=== PATIENT | female | born 1945 | race Caucasian/White ===

== ENCOUNTER → 2021-01-23 | Outpatient (CLI) | payer MEDICARE ==
--- NOTE | 2021-01-24 08:46 | EST ---
- Stress Test Note Stress Test Results/Findings: Exam Performed: stress echo exercise Exam Date: 01/23/21 Reason for Exam: ABN EKG Height: 5 ft 3 in Weight: 77.3 kg Protocol: STRESS ECHO Stage: 1 Duration of Exercise: 3:00 Resting Heart Rate: 87 Resting Blood Pressure: 111/70 Maximum Achieved Heart Rate: 135 Maximum Achieved Blood Pressure: 161/61 85% PMHR: 123 100% PMHR: 145 METS: 4.4 Technologist Comment: Stress Test Results/Findings: Patient underwent exercise stress echo with a Deshaun protocol treadmill stress test. Patient exercised into Stage 1 for a total of 3 minutes reaching a total of 4.4 METS. Patient's maximum heart rate was 135 which represented 93 % age- predicted maximum heart rate. Stress EKG portion: At baseline patient's EKG showed normal sinus rhythm, normal axis, right plantar alannah block with nonspecific ST depressions in V3 through the 4. At peak exercise, EKG showed mild accentuation of S2 depressions P3 through V4, rare PVCs which is nonspecific given baseline EKG abnormalities. Stress echo portion: 2-D echocardiogram was performed in the parasternal long, personal short, apical 2 and apical four-chamber views at rest, peak exercise and in recovery. At baseline, echocardiogram showed left ventricular ejection fraction 55% without wall motion abnormalities. With peak exercise, echocardiogram shows improvement in left ventricular ejection fraction, increase contractility, decrease in left ventricular dimension without wall motion abnormalities consistent with a normal response to exercise. Conclusions: 1. Normal echo response to exercise without evidence of inducible ischemia. 2. Nonspecific EKG response given baseline EKG abnormalities. 3. Poor exercise capacity. 4. Normal ejection fraction 55% MTDD
== END | disposition home or self-care (01) ==
LOC: RADNMMAIN 09:36
PROVIDERS: ATTEND Family Medicine
DX: R94.31 Abnormal electrocardiogram [ECG] [EKG] (principal)
CPT/HCPCS: 93351

== ENCOUNTER → 2021-02-06 | Outpatient (CLI) | payer MEDICARE | END | disposition home or self-care (01) | DX: M85.851 Other specified disorders of bone density and structure, right thigh (principal) ==

== ENCOUNTER 2021-08-27 16:10 | Emergency (ER) | payer MEDICARE ==
[2021-08-27] MEDS ORDERED: IBUPROFEN 600 MG TAB PO STA (16:18)
[2021-08-27] MEDS ORDERED: ACETAMINOPHEN TAB 500 MG TAB PO STA (16:18)
--- NOTE | 2021-08-27 16:22 | ED ---
General Adult HPI - General Stated complaint: Generalized weakness Time Seen by Provider: 08/27/21 16:10 Source: patient, RN notes reviewed, old records reviewed - History of Present Illness Initial comments: This is a 76-year-old female presents emergency Department who states she's had COVID vaccine and the posterior. Patient states her has had the same but he recently came down with Coban. Patient states starting yesterday she started feeling extremely weak and fatigued. Patient states she at one point stop and passed out for a couple months according to her but after that she was again just feeling fatigued. Patient states again she got up today and her weakness in worsened and she just didn't feel right so she thought she come to the emergency department. Patient denies any shortness of breath or difficulty breathing or palpitations. Patient denies any abdominal pain. Patient states she did have diarrhea yesterday but none so far today. Patient states she hasn't eaten anything yesterday or today and is not taking much fluid in either. Patient's took her temperature at home and states was over 101. - Related Data Home Medications Medication Instructions Recorded Confirmed Levothyroxine Sodium [Synthroid] 50 mcg PO DAILY 08/27/21 08/27/21 Simvastatin [Zocor] 20 mg PO HS 08/27/21 08/27/21 hydroCHLOROthiazide [Hydrodiuril] 25 mg PO DAILY 08/27/21 08/27/21 Previous Rx's Medication Instructions Recorded Nitrofurantoin Monohyd/M-Cryst 100 mg PO Q12HR #14 cap 08/27/21 [Macrobid] Allergies Allergy/AdvReac Type Severity Reaction Status Date / Time Penicillins AdvReac Rash/Hives Verified 08/27/21 17:35 Sulfa (Sulfonamide AdvReac Rash/Hives Verified 08/27/21 17:35 Antibiotics) Review of Systems ROS Statement: Those systems with pertinent positive or pertinent negative responses have been documented in the HPI. ROS Other: All systems not noted in ROS Statement are negative. General Exam - General Exam Comments Initial Comments: GENERAL: Patient is well-developed and well-nourished. Patient is nontoxic and well- hydrated and is in mild distress. ENT: Neck is soft and supple. No significant lymphadenopathy is noted. Oropharynx is clear. Moist mucous membranes. Neck has full range of motion without elic iting any pain. EYES: The sclera were anicteric and conjunctiva were pink and moist. Extraocular movements were intact and pupils were equal round and reactive to light. Eyelids were unremarkable. PULMONARY: Unlabored respirations. Good breath sounds bilaterally. No audible rales rhonchi or wheezing was noted. CARDIOVASCULAR: There is a regular rate and rhythm without any murmurs gallops or rubs. ABDOMEN: Soft and nontender with normal bowel sounds. SKIN: Skin is clear with no lesions or rashes and otherwise unremarkable. NEUROLOGIC: Patient is alert and oriented x3. Cranial nerves II through XII are grossly intact. Motor and sensory are also intact. Normal speech, volume and content. Symmetrical smile. MUSCULOSKELETAL: Normal extremities with adequate strength and full range of motion. LYMPHATICS: No significant lymphadenopathy is noted PSYCHIATRIC: Normal psychiatric evaluation. Course Vital Signs 08/27/21 16:23 Temperature 101.5 F H Pulse Rate 121 H Respiratory 16 Rate Blood Pressure 122/89 O2 Sat by Pulse 96 Oximetry Medical Decision Making - Medical Decision Making EKG shows sinus tachycardia at 105 bpm VT interval is 120 QRS is under 26 QT interval 372 QTC is 491. Patient's EKG shows a right bundle-branch block. Patient also has an occasional PAC Chest x-ray shows no acute abnormality. Patient urinary tract infection and give 2 g of Rocephin IV. I will back and reevaluated after the patient received fluids and Motrin and Tylenol and Rocephin. Patient stated she felt better and she was comfortable going home and follow-up as an outpatient. - Lab Data Result diagrams: 08/27/21 16:45 08/27/21 16:45 Lab Results 08/27/21 08/27/21 08/27/21 Range/Units 16:36 16:45 16:45 WBC 15.4 H (3.8-10.6) k/uL RBC 4.38 (3.80-5.40) m/uL Hgb 14.1 (11.4-16.0) gm/dL Hct 43.2 (34.0-46.0) % MCV 98.5 (80.0-100.0) fL MCH 32.1 (25.0-35.0) pg MCHC 32.6 (31.0-37.0) g/dL RDW 14.1 (11.5-15.5) % Plt Count 170 (150-450) k/uL MPV 7.9 Neutrophils % 96 % Lymphocytes % 1 % Monocytes % 1 % Eosinophils % 1 % Basophils % 0 % Neutrophils # 14.8 H (1.3-7.7) k/uL Lymphocytes # 0.2 L (1.0-4.8) k/uL Monocytes # 0.2 (0-1.0) k/uL Eosinophils # 0.1 (0-0.7) k/uL Basophils # 0.0 (0-0.2) k/uL PT (9.0-12.0) sec INR (<1.2) APTT (22.0-30.0) sec Sodium (137-145) mmol/L Potassium (3.5-5.1) mmol/L Chloride (98-107) mmol/L Carbon Dioxide (22-30) mmol/L Anion Gap mmol/L BUN (7-17) mg/dL Creatinine (0.52-1.04) mg/dL Est GFR (CKD-EPI)AfAm (>60 ml/min/1.73 sqM) Est GFR (CKD-EPI)NonAf (>60 ml/min/1.73 sqM) Glucose (74-99) mg/dL Plasma Lactic Acid Zeus (0.7-2.0) mmol/L Calcium (8.4-10.2) mg/dL Total Bilirubin (0.2-1.3) mg/dL AST (14-36) U/L ALT (4-34) U/L Alkaline Phosphatase (38-126) U/L Troponin I <0.012 (0.000-0.034) ng/mL Total Protein (6.3-8.2) g/dL Albumin (3.5-5.0) g/dL Urine Color Urine Appearance (Clear) Urine pH (5.0-8.0) Ur Specific [place] (1.001-1.035) Urine Protein (Negative) Urine Glucose (UA) (Negative) Urine Ketones (Negative) Urine Blood (Negative) Urine Nitrite (Negative) Urine Bilirubin (Negative) Urine Urobilinogen (<2.0) mg/dL Ur Leukocyte Esterase (Negative) Urine RBC (0-5) /hpf Urine WBC (0-5) /hpf Urine WBC Clumps (None) /hpf Ur Squamous Epith Cells (0-4) /hpf Urine Bacteria (None) /hpf Urine Mucus (None) /hpf Urine Yeast (Budding) (None) /hpf Coronavirus (PCR) Detected A (Not Detectd) 08/27/21 08/27/21 08/27/21 Range/Units 16:45 16:45 16:45 WBC (3.8-10.6) k/uL RBC (3.80-5.40) m/uL Hgb (11.4-16.0) gm/dL Hct (34.0-46.0) % MCV (80.0-100.0) fL MCH (25.0-35.0) pg MCHC (31.0-37.0) g/dL RDW (11.5-15.5) % Plt Count (150-450) k/uL MPV Neutrophils % % Lymphocytes % % Monocytes % % Eosinophils % % Basophils % % Neutrophils # (1.3-7.7) k/uL Lymphocytes # (1.0-4.8) k/uL Monocytes # (0-1.0) k/uL Eosinophils # (0-0.7) k/uL Basophils # (0-0.2) k/uL PT 10.0 (9.0-12.0) sec INR 0.9 (<1.2) APTT 23.2 (22.0-30.0) sec Sodium 132 L (137-145) mmol/L Potassium 3.6 (3.5-5.1) mmol/L Chloride 96 L (98-107) mmol/L Carbon Dioxide 27 (22-30) mmol/L Anion Gap 9 mmol/L BUN 38 H (7-17) mg/dL Creatinine 0.99 (0.52-1.04) mg/dL Est GFR (CKD-EPI)AfAm 64 (>60 ml/min/1.73 sqM) Est GFR (CKD-EPI)NonAf 56 (>60 ml/min/1.73 sqM) Glucose 126 H (74-99) mg/dL Plasma Lactic Acid Zeus 1.3 (0.7-2.0) mmol/L Calcium 8.5 (8.4-10.2) mg/dL Total Bilirubin 0.9 (0.2-1.3) mg/dL AST 158 H (14-36) U/L ALT 125 H (4-34) U/L Alkaline Phosphatase 163 H (38-126) U/L Troponin I (0.000-0.034) ng/mL Total Protein 6.2 L (6.3-8.2) g/dL Albumin 3.4 L (3.5-5.0) g/dL Urine Color Urine Appearance (Clear) Urine pH (5.0-8.0) Ur Specific [place] (1.001-1.035) Urine Protein (Negative) Urine Glucose (UA) (Negative) Urine Ketones (Negative) Urine Blood (Negative) Urine Nitrite (Negative) Urine Bilirubin (Negative) Urine Urobilinogen (<2.0) mg/dL Ur Leukocyte Esterase (Negative) Urine RBC (0-5) /hpf Urine WBC (0-5) /hpf Urine WBC Clumps (None) /hpf Ur Squamous Epith Cells (0-4) /hpf Urine Bacteria (None) /hpf Urine Mucus (None) /hpf Urine Yeast (Budding) (None) /hpf Coronavirus (PCR) (Not Detectd) 08/27/21 Range/Units 17:17 WBC (3.8-10.6) k/uL RBC (3.80-5.40) m/uL Hgb (11.4-16.0) gm/dL Hct (34.0-46.0) % MCV (80.0-100.0) fL MCH (25.0-35.0) pg MCHC (31.0-37.0) g/dL RDW (11.5-15.5) % Plt Count (150-450) k/uL MPV Neutrophils % % Lymphocytes % % Monocytes % % Eosinophils % % Basophils % % Neutrophils # (1.3-7.7) k/uL Lymphocytes # (1.0-4.8) k/uL Monocytes # (0-1.0) k/uL Eosinophils # (0-0.7) k/uL Basophils # (0-0.2) k/uL PT (9.0-12.0) sec INR (<1.2) APTT (22.0-30.0) sec Sodium (137-145) mmol/L Potassium (3.5-5.1) mmol/L Chloride (98-107) mmol/L Carbon Dioxide (22-30) mmol/L Anion Gap mmol/L BUN (7-17) mg/dL Creatinine (0.52-1.04) mg/dL Est GFR (CKD-EPI)AfAm (>60 ml/min/1.73 sqM) Est GFR (CKD-EPI)NonAf (>60 ml/min/1.73 sqM) Glucose (74-99) mg/dL Plasma Lactic Acid Zeus (0.7-2.0) mmol/L Calcium (8.4-10.2) mg/dL Total Bilirubin (0.2-1.3) mg/dL AST (14-36) U/L ALT (4-34) U/L Alkaline Phosphatase (38-126) U/L Troponin I (0.000-0.034) ng/mL Total Protein (6.3-8.2) g/dL Albumin (3.5-5.0) g/dL Urine Color Yellow Urine Appearance Cloudy H (Clear) Urine pH 6.0 (5.0-8.0) Ur Specific [place] 1.039 H (1.001-1.035) Urine Protein 2+ H (Negative) Urine Glucose (UA) Negative (Negative) Urine Ketones 1+ H (Negative) Urine Blood Small H (Negative) Urine Nitrite Positive H (Negative) Urine Bilirubin Negative (Negative) Urine Urobilinogen 2.0 (<2.0) mg/dL Ur Leukocyte Esterase Large H (Negative) Urine RBC 7 H (0-5) /hpf Urine WBC >182 H (0-5) /hpf Urine WBC Clumps Occasional H (None) /hpf Ur Squamous Epith Cells 1 (0-4) /hpf Urine Bacteria Many H (None) /hpf Urine Mucus Few H (None) /hpf Urine Yeast (Budding) Few H (None) /hpf Coronavirus (PCR) (Not Detectd) Disposition Clinical Impression: COVID, Urinary tract infection Disposition: HOME SELF-CARE Condition: Good Instructions (If sedation given, give patient instructions): Coronavirus Dise ase 2019 (COVID-19), Urinary Tract Infection in Women (ED) Prescriptions: Nitrofurantoin Monohyd/M-Cryst [Macrobid] 100 mg PO Q12HR #14 cap Is patient prescribed a controlled substance at d/c from ED?: No Referrals: Dotty Schuler DO [Primary Care Provider] - 1-2 days Time of Disposition: 18:37
[2021-08-27] MEDS: SODIUM CHLORIDE 0.9% 500 ML 500 ML IV SCH ×3 (16:30→17:30)
--- NOTE | 2021-08-27 16:36 | XR ---
EXAMINATION TYPE: XR chest 2V DATE OF EXAM: 08/27/2021 COMPARISON: NONE HISTORY: Fever and weakness. TECHNIQUE: Frontal and lateral views of the chest are obtained. FINDINGS: Elevation and eventration anterior aspect right hemidiaphragm. There is no suspicious foca l air space opacity, pleural effusion, or pneumothorax seen. The cardiac silhouette size is within n ormal limits with calcified plaque aortic knob. The osseous structures are intact. IMPRESSION: No acute pulmonary process.
[2021-08-27 16:56] LABS: Basophils % (A) 0 %; Eosinophils # (A) 0.1 k/uL (0-0.7); Eosinophils % (A) 1 %; HCT 43.2 % (34.0-46.0); HGB 14.1 gm/dL (11.4-16.0); Lymphocytes # (A) 0.2 k/uL (1.0-4.8); Lymphocytes % (A) 1 %; MCH 32.1 pg (25.0-35.0); MCHC 32.6 g/dL (31.0-37.0); MCV 98.5 fL (80.0-100.0); Mean Platelet Volume 7.9; Monocytes # (A) 0.2 k/uL (0-1.0); Monocytes % (A) 1 %; Neutrophils # (A) 14.8 k/uL (1.3-7.7); Neutrophils % (A) 96 %; Platelet Count 170 k/uL (150-450); RBC 4.38 m/uL (3.80-5.40); RDW 14.1 % (11.5-15.5); WBC 15.4 k/uL (3.8-10.6)
[2021-08-27 17:09] LABS: Albumin 3.4 g/dL (3.5-5.0); Calcium 8.5 mg/dL (8.4-10.2); INR 0.9 (<1.2); Partial Thromboplastin Time 23.2 sec (22.0-30.0); Total Bilirubin 0.9 mg/dL (0.2-1.3); Total Protein 6.2 g/dL (6.3-8.2)
[2021-08-27 17:19] LABS: Potassium 3.6 mmol/L (3.5-5.1)
[2021-08-27 17:34] LABS: Appearance,Urine Cloudy (Clear); Bacteria,Urine Many /hpf; Bilirubin,Urine Negative (Negative); Blood,Urine Small (Negative); Budding Yeast,Urine Few /hpf; Color,Urine Yellow; Glucose,Urine (UA) Negative (Negative); Ketones,Urine 1+ (Negative); Leukocyte Esterase,Urine Large (Negative); Mucus,Urine Few /hpf; Nitrite,Urine Positive (Negative); Protein,Urine 2+ (Negative); RBC,Urine 7 /hpf (0-5); Specific Gravity,Urine 1.039 (1.001-1.035); Squamous Epithelial Cell,Urine 1 /hpf (0-4); WBC,Urine >182 /hpf (0-5)
[2021-08-27] MEDS ORDERED: cefTRIAXone IN SWFI 1,000 MG/10 ML SYRINGE IVP STA (17:53)
[2021-08-27 18:49] VITALS: RESP 18; TEMP 99.2
[2021-08-27 19:06] VITALS: BP 131/77; PULSE 94
== END 2021-08-27 19:06 | disposition home or self-care (01) ==
LOC: EC 16:10
DX: U07.1 COVID-19 (principal); N39.0 Urinary tract infection, site not specified
CPT/HCPCS: 36415; 93005; 80053; 83605; 84484; 85025; 85610; 85730; 81001; 87040; 87086; 87635; 71046; 99285; 96374; J0696

== ENCOUNTER 2021-09-23 12:05 | Observation (INO) | payer MEDICARE ==
[2021-09-23] MEDS ORDERED: MORPHINE SULFATE 2 MG/ML SYRINGE IVP STA (12:44)
[2021-09-23] MEDS ORDERED: VANCOMYCIN IV PER PHARMACY 1 EACH MISC MISCELLANE PRN (12:45)
[2021-09-23] MEDS ORDERED: VANCOMYCIN 1,500 MG in SODIUM CHLORIDE 0.9% 250 ML IVPB STA (12:47)
[2021-09-23] MEDS ORDERED: NALOXONE 0.4 MG/ML 1 ML VIAL IV PRN (12:49)
[2021-09-23] MEDS ORDERED: ACETAMINOPHEN TAB 325 MG TAB PO PRN (12:49)
[2021-09-23] MEDS: SODIUM CHLORIDE 0.9% 1,000 ML IV SCH (12:59)
--- NOTE | 2021-09-23 13:05 | ED ---
General Adult HPI - General Chief complaint: Skin/Abscess/Foreign Body Stated complaint: drainage from incision Time Seen by Provider: 09/23/21 12:29 Source: patient, RN notes reviewed, old records reviewed Mode of arrival: ambulatory Limitations: no limitations - History of Present Illness Initial comments: Patient is a 76-year-old female who presents from her orthopedic surgeon's office, and comes to the emergency Department complaining of worsening drainage from a surgical wound. Patient previously had a left leg/hip abscess that was drained on September 11. She was sent home on IV antibiotics through PICC line. He'll follow up today with Dr. lynn who requested her come to the emergency department for further evaluation. Plan is to admit the patient the hospital for washout tomorrow in the OR. She denies any fever. Endorses pain over the site. States that along the lower aspect of the incision, she does have some purulent drainage. Has been getting worse for the last 3-4 days. She denies any chest pain, abdominal pain, nausea, vomiting. Denies any lower extremities numbness or weakness. His no other acute complaints at this time. Presents for admission. - Related Data Home Medications Medication Instructions Recorded Confirmed Levothyroxine Sodium [Synthroid] 50 mcg PO DAILY 08/27/21 09/23/21 Simvastatin [Zocor] 20 mg PO HS 08/27/21 09/23/21 hydroCHLOROthiazide [Hydrodiuril] 25 mg PO DAILY 08/27/21 09/23/21 Acetaminophen Tab [Tylenol] 650 mg PO Q6H PRN 09/23/21 09/23/21 cefTRIAXone [Rocephin] 1 dose IV Q8H 09/23/21 09/23/21 Allergies Allergy/AdvReac Type Severity Reaction Status Date / Time Penicillins AdvReac Rash/Hives Verified 09/23/21 12:26 Sulfa (Sulfonamide AdvReac Rash/Hives Verified 09/23/21 12:26 Antibiotics) Review of Systems ROS Statement: Those systems with pertinent positive or pertinent negative responses have been documented in the HPI. Review of Systems: CONST: Denies fever EYES: Denies blurry vision ENT: Denies nasal congestion C/V: Denies Chest pain RESP: Denies shortness of breath GI: Denies abdominal pain : Denies dysuria SKIN: Endorses surgical wound drainage. MSK: Denies joint pain. NEURO: Denies headache ROS Other: All systems not noted in ROS Statement are negative. Past Medical History Past Medical History: Hypertension, Thyroid Disorder Additional Past Medical History / Comment(s): COVID + 08/27/21, L hip pain/corticosteroid injections about every 3 months, occasional low back pain, past bilateral ankle edema, hypothyroid, benign colon polyps, bilateral eye scleritis flare-ups. History of Any Multi-Drug Resistant Organisms: None Reported Past Surgical History: No Surgical Hx Reported Additional Past Surgical History / Comment(s): abscess surgery on left hip Past Anesthesia/Blood Transfusion Reactions: No Reported Reaction Past Psychological History: No Psychological Hx Reported Smoking Status: Never smoker Past Alcohol Use History: None Reported Past Drug Use History: None Reported - Past Family History Father Additional Family Medical History / Comment(s): Heart issues Mother Family Medical History: Cancer Additional Family Medical History / Comment(s): Colon cancer Family Family Medical History: No Reported History General Exam - General Exam Comments Initial Comments: General: Appears in no acute distress. HEAD: Normal with no signs of head trauma. EYES: PERRLA, EOMI, conjunctiva normal, no discharge. ENT: Hearing grossly intact, normal oropharynx. RESPIRATORY: Clear breath sounds bilaterally. No wheezes, rales, or rhonchi. C/V: Regular rate and rhythm. S1 and S2 auscultated. Peripheral pulses are 2+ and intact throughout including the left lower extremity. ABD: Abd is soft, nontender, nondistended EXT: Normal range of motion, no obvious deformity SKIN: He has an approximately 10 cm surgical incision over the anterior lateral aspect of the left thigh and hip. There is purulent drainage from the inferior aspect of the incision. There is surrounding erythema. Site is warm. No induration. No fluctuance. NEURO: Alert and oriented 4. No focal sensory strength deficits. Limitations: no limitations Course Vital Signs 09/23/21 12:23 Temperature 98.7 F Pulse Rate 91 Respiratory 16 Rate Blood Pressure 123/81 O2 Sat by Pulse 98 Oximetry Medical Decision Making - Medical Decision Making Patient presents over concern for worsening of her previous surgically drained left leg abscess. I spoke with lalo Jose, who discussed with him that the plan is or tomorrow for washout. Requested basic labs. Patient will be restarted on her home cefazolin. I discussed this with the patient she was in agreement this plan. She'll be given IV analgesia as well. Nothing by mouth after midnight. Lavatory studies were remarkable for a hemoglobin of 10.8, which seems to be at about her baseline. Remainder of her labs are relatively unremarkable. On reevaluation, patient is feeling improved following analgesics medications. I updated her and her laboratory studies. She'll be admitted for surgery tomorrow under Dr. Lynn. - Lab Data Result diagrams: 09/23/21 13:13 09/23/21 13:13 Disposition Clinical Impression: Surgical site infection Disposition: ADMITTED IP TO THIS HOSP Condition: Serious
[2021-09-23 13:23] LABS: Basophils # (A) 0.1 k/uL (0-0.2); Basophils % (A) 1 %; Eosinophils # (A) 0.2 k/uL (0-0.7); Eosinophils % (A) 2 %; HCT 32.3 % (34.0-46.0); HGB 10.8 gm/dL (11.4-16.0); Lymphocytes # (A) 1.2 k/uL (1.0-4.8); Lymphocytes % (A) 11 %; MCH 33.1 pg (25.0-35.0); MCHC 33.3 g/dL (31.0-37.0); MCV 99.7 fL (80.0-100.0); Macrocytosis Slight; Mean Platelet Volume 7.2; Monocytes # (A) 0.5 k/uL (0-1.0); Monocytes % (A) 5 %; Neutrophils % (A) 78 %; Platelet Count 398 k/uL (150-450); RBC 3.25 m/uL (3.80-5.40); RDW 14.1 % (11.5-15.5); WBC 10.3 k/uL (3.8-10.6)
[2021-09-23 13:34] LABS: Calcium 8.4 mg/dL (8.4-10.2); Potassium 3.5 mmol/L (3.5-5.1); Total Bilirubin 0.4 mg/dL (0.2-1.3); Total Protein 5.8 g/dL (6.3-8.2)
[2021-09-23 14:11] LABS: INR 0.9 (<1.2); Partial Thromboplastin Time 22.1 sec (22.0-30.0); Prothrombin Time 10.3 sec (9.0-12.0)
[2021-09-23] MEDS: MORPHINE SULFATE 4 MG/ML SYRINGE IV PRN (21:15)
[2021-09-24] MEDS: SODIUM CHLORIDE 0.9% 1,000 ML IV SCH ×3 (00:19→23:37)
--- NOTE | 2021-09-24 11:22 | P.HPOR ---
History of Present Illness H&P Date: 09/24/21 Chief Complaint: Left hip infection Patient is a 76-year-old female who was directly admitted to [facility] yesterday afternoon after seeing Dr. Estrada of [facility] advanced orthopedics in the outpatient setting. Patient had previously underwent an I&D for a left hip abscess on 09/10/2021. Patient had spent some time in the hospital, she described a PICC line has been doing her treatments outpatient. She contacted our office over the weekend with regards to some increase in drainage, she denied any fevers or chills or excess pain at that time. She was then seen by Dr. Estrada in the office on 09/23/2021, at that time of evaluation the wound was significantly draining. Decision was made to admit the patient to the hospital with plan for repeat incision and drainage with irrigation and debridement of the left hip. Patient was evaluated today at bedside, resting comfortably in her hospital bed. She has no acute pain at this time. She denies any fevers or chills. Patient has mild tenderness to the incision area on the left-hand side. She denies any other orthopedic complaints this time. Review of Systems Constitutional: Reports as per HPI Past Medical History Past Medical History: Hypertension, Thyroid Disorder Additional Past Medical History / Comment(s): COVID + 08/27/21, L hip pain/corticosteroid injections about every 3 months, occasional low back pain, past bilateral ankle edema, hypothyroid, benign colon polyps, bilateral eye scleritis flare-ups. History of Any Multi-Drug Resistant Organisms: None Reported Past Surgical History: No Surgical Hx Reported Additional Past Surgical History / Comment(s): abscess surgery on left hip Past Anesthesia/Blood Transfusion Reactions: No Reported Reaction Past Psychological History: No Psychological Hx Reported Additional Psychological History / Comment(s): Pt resides with her spouse. She is independent. Smoking Status: Never smoker Past Alcohol Use History: None Reported Past Drug Use History: None Reported - Past Family History Father Additional Family Medical History / Comment(s): Heart issues Mother Family Medical History: Cancer Additional Family Medical History / Comment(s): Colon cancer Family Family Medical History: No Reported History Medications and Allergies Home Medications Medication Instructions Recorded Confirmed Type Levothyroxine Sodium [Synthroid] 50 mcg PO DAILY 08/27/21 09/23/21 History Simvastatin [Zocor] 20 mg PO HS 08/27/21 09/23/21 History hydroCHLOROthiazide [Hydrodiuril] 25 mg PO DAILY 08/27/21 09/23/21 History Acetaminophen Tab [Tylenol] 650 mg PO Q6H PRN 09/23/21 09/23/21 History cefTRIAXone [Rocephin] 1 dose IV Q8H 09/23/21 09/23/21 History Allergies Allergy/AdvReac Type Severity Reaction Status Date / Time Penicillins AdvReac Rash/Hives Verified 09/23/21 12:26 Sulfa (Sulfonamide AdvReac Rash/Hives Verified 09/23/21 12:26 Antibiotics) Physical Examination Left lower extremity: Incision is well healing at this time, jennifer are in good position and condition. There is maybe be present, there is some spotty drainage. There is no erythema to the surrounding skin. There is minimal tenderness with palpation. There is no significant fullness appreciated on exam repairs fluctu ance. On maneuver the hip reproduces no pain. She's nontender with palpation surrounding the knee, lower leg, foot or ankle Compartments of the anterior and posterior aspects of the left lower extremity are soft and compressible Calf is soft, no tenderness with palpation Plantar flexion, dorsiflexion, EHL, FHL are intact Sensory exam to light touch is intact at the extremity, dorsalis pedis pulses 2+ Results - Labs Labs: Abnormal Lab Results - Last 24 Hours (Table) 09/23/21 09/23/21 Range/Units 13:13 13:13 RBC 3.25 L (3.80-5.40) m/uL Hgb 10.8 L (11.4-16.0) gm/dL Hct 32.3 L (34.0-46.0) % Neutrophils # 8.0 H (1.3-7.7) k/uL Sodium 136 L (137-145) mmol/L Carbon Dioxide 33 H (22-30) mmol/L BUN 22 H (7-17) mg/dL Total Protein 5.8 L (6.3-8.2) g/dL Albumin 3.0 L (3.5-5.0) g/dL H & H 09/23/21 Range/Units 13:13 Hgb 10.8 L (11.4-16.0) gm/dL Hct 32.3 L (34.0-46.0) % Coagulation 09/23/21 Range/Units 13:37 INR 0.9 (<1.2) Result Diagrams: 09/23/21 13:13 09/23/21 13:13 Assessment and Plan Assessment: Left hip cellulitis/abscess History of recent incision and drainage and irrigation and debridement left abscess History of previous steroid injections left greater trochanteric bursa Plan: Patient was made nothing by mouth after midnight on 09/23/2021, consent was obtained for a repeat incision and drainage and irrigation and debridement. Depending on findings at surgery, new cultures may be taken IV antibiotics have been continued from Dr. Munoz previous recommendations Weight-bear as tolerated left lower extremity Discussed the patient today likely keep the patient one additional night with hopeful plan for discharge on 09/25/2021 pending patient's regression Further recommendations to follow
[2021-09-24] MEDS ORDERED: LACTATED RINGERS 1,000 ML IV ONE (11:59)
[2021-09-24] MEDS ORDERED: SUCCINYLCHOLINE CHLORIDE 100 MG/5 ML SYR IV ONE ×2 (12:29)
[2021-09-24] MEDS ORDERED: LIDOCAINE 1% INJ 10MG/ML (20 ML MDV) ONE (12:29)
[2021-09-24] MEDS ORDERED: fentaNYL (PF) 50 MCG/ML 2 ML AMP ONE (12:29)
[2021-09-24] MEDS ORDERED: PROPOFOL 10 MG/ML 20 ML VIAL IV ONE (12:29)
[2021-09-24] MEDS ORDERED: MIDAZOLAM 2 MG/2 ML VIAL ONE (12:29)
[2021-09-24] MEDS ORDERED: ceFAZolin 3,000 MG in SODIUM CHLORIDE 0.9% IRRIGATIO 3,000 ML IRRIGATION ONE (12:59)
--- NOTE | 2021-09-24 13:18 | P.OP ---
Date of Procedure: 09/24/21 Preoperative Diagnosis: Left hip bursal infection Postoperative Diagnosis: Same Procedure(s) Performed: Incision with irrigation and debridement left hip abscess Anesthesia: EILEEN Surgeon: Wade Estrada Remote Medical Coder #1: Toro Jose Estimated Blood Loss (ml): 15 Pathology: other (Cultures) Condition: stable Disposition: PACU Indications for Procedure: 76-year-old patient was seen with a recurrent abscess involving the left lateral hip/bursal area. I recommended repeat incision with irrigation debridement. Patient was agreeable and consent was obtained. Operative Findings: See description of procedure Description of Procedure: Patient was taken to the operative suite. She underwent a general anesthetic by the department of anesthesia. She was now placed into a lateral position with appropriate padding of the bony prominence. Left hip was now prepped and draped in normal sterile orthopedic fashion. We immediately noted some purulent drainage along the inferior aspect of the previous incision. Cultures were obtained of that. I now made an incision through previous cicatrix sharply through skin measuring approximately 4 cm. Immediately encountered recurrent abscess cultures were obtained as well. On a crash help retract the soft tissues I used a #10 blade to perform an incisional debridement excising all chronic and abnormal-appearing tissue. Once this was completed the wound was irrigated with 2000 mL of antibiotic irrigant. I now explored one more time and noted no residual abnormal-appearing tissue. We now irrigated the wound with Betadine solution followed by an additional 1000 mL of antibiotic irrigant. We again explored the wound and there was no abnormal looking tissue. I now repaired the subcutaneous soft tissues in layers with 2-0 Vicryl. The skin was approximated with skin jennifer. Sterile dressings were applied. Patient was now awakened and transferred to a bed and recovery stable condition. Vinay FRANKLIN assisted with the procedure.
[2021-09-24] MEDS ORDERED: HYDROmorphone 0.5 MG/0.5 ML SYRINGE IVP PRN ×3 (13:21)
[2021-09-24] MEDS ORDERED: HYDROcodone/APAP 5-325MG 1 EACH TAB PO PRN (13:21)
[2021-09-24] MEDS: MORPHINE SULFATE 4 MG/ML SYRINGE IV PRN (15:56)
[2021-09-24] MEDS: LACTATED RINGERS 1,000 ML IV SCH (16:00)
[2021-09-24] MEDS ORDERED: HYDROmorphone 1 MG/ML 1 ML SYRINGE IVP PRN ×3 (20:32)
[2021-09-24 20:47] VITALS: RESP 16
[2021-09-25] MEDS: LACTATED RINGERS 1,000 ML IV SCH ×2 (02:34→09:17)
[2021-09-25] MEDS: HYDROcodone/APAP 5-325MG 1 EACH TAB PO PRN ×2 (02:36→09:07)
[2021-09-25] MEDS: SODIUM CHLORIDE 0.9% 1,000 ML IV SCH (09:05)
--- NOTE | 2021-09-25 11:59 | P.PN ---
Subjective Progress Note Date: 09/25/21 Principal diagnosis: s/p I&D left hip abscess Patient evaluated at bedside she is resting comfortably. She has minimal pain involving the left hip. She denies any fevers or chills. She's been up ambulating with no difficulty Objective - Vital Signs Vital signs: Vital Signs Temp 98.4 F 09/25/21 07:26 Pulse 76 09/25/21 11:14 Resp 16 09/25/21 11:14 BP 119/69 09/25/21 07:26 Pulse Ox 96 09/25/21 07:26 Intake & Output 09/24/21 09/25/21 09/25/21 18:59 06:59 18:59 Intake Total 2451 900 Output Total 15 Balance 2436 900 Intake: IV 1451 900 Sodium Chloride 0.9% 1, 900 900 000 ml @ 75 mls/hr IV . [id number] RAMONA Rx#:[id number] Oral 1000 Output: Estimated Blood Loss 15 Other: Voiding Method Toilet Toilet # Voids 3 # Bowel Movements 2 - Exam Left lower extremity: Postoperative bandages removed today bedside, no significant drainage noted. Padmini are all in good position and condition. Mild erythema at the incision site. No areas of fluctuance appreciated. Minimal tenderness with palpation. Distal neurovascular exam is intact. - Labs CBC & Chem 7: 09/23/21 13:13 09/23/21 13:13 Labs: Microbiology - Last 24 Hours (Table) 09/24/21 12:00 Wound Culture - Preliminary Hip - Left 09/24/21 12:01 Wound Culture - Preliminary Hip - Left 09/24/21 12:00 Anaerobic Culture - Preliminary Hip - Left 09/24/21 12:01 Anaerobic Culture - Preliminary Hip - Left Assessment and Plan Assessment: Postoperative day #1 status post I&D left hip abscess Plan: Pain control, we'll discharge home on [place] 5 mg/325 mg Culture and sensitivities are pending at this time, will await results. We'll contact infectious disease once culture and sensitivities are available to consider alteration of IV antibiotics, continue with current conditions at this time Wound care instructions were discussed the patient along with activity level instructions Discharge planning: Patient will be discharged home today Time with Patient: Less than 30
--- NOTE | 2021-09-25 12:11 | P.DS ---
Providers Date of admission: 09/23/21 12:49 Expected date of discharge: 09/25/21 Attending physician: Wade Estrada Primary care physician: Dotty Schuler Hospital Course: Date of admission: 09/23/2021 Date of discharge: 09/25/2021 Admission diagnosis: Left hip abscess Discharge diagnosis: Same, status post I&D left hip abscess Attending physician: Dr. Estrada Surgical procedures: Incision with irrigation and debridement left hip abscess Brief history: Patient is a 76-year-old female who had recently undergone an I&D for left hip abscess. Patient was treated at [facility], she was discharged home on IV antibiotics. Patient contacted our office and was evaluated due to increasing draining after procedure. It was determined that a repeat I&D would be needed. She was directly admitted to [facility] on 09/23/2021 with plan for surgical intervention. She underwent her procedure on 09/24/2021. Hospital course: Details of patient's surgery can be found in operative report. Patient tolerated the procedure well and was subsequently transported to orthopedic floor. Patient's orthopeidc and medical care was provided daily. Patient had daily laboratory tests performed for evaluation of overall blood counts. Patient had daily physical therapy to include strengthening range of motion as well as education with walker ambulation. Patient was noted to have a relatively uneventful postoperative course. Patient reported satisfactory pain control with oral pain medications by postoperative day 0. Patient showed satisfactory progress with physical therapy. Patient moved steadily through the program and had no difficulty meeting the goals by postoperative day 1. Given patient's otherwise satisfactory course and having met physical therapy goals, plan is to discharge patient home on postoperative day 1. Discharge condition/disposition: Patient will be discharged home in stable condition. Discharge medications: Instructions are given on resumption of patient's normal daily medications per primary care recommendation, in addition patient will be prescribed [place] 5 mg/325 mg. Discharge instructions: 1. Daily dressing changes 2. Keep incision covered and dry while showering for the first 35 days 3. Ice affected area of the 4. Plan for [facility]-up at [facility] 10 days 5. Please contact office with any questions Procedures: Incision with irrigation and debridement left hip abscess Patient Condition at Discharge: Stable Plan - Discharge Summary Discharge Rx Participant: No New Discharge Prescriptions: New HYDROcodone/APAP 5-325MG [[place] 5-325] 1 tab PO Q6HR PRN #21 tab PRN Reason: Pain No Action Levothyroxine Sodium [Synthroid] 50 mcg PO DAILY Simvastatin [Zocor] 20 mg PO HS hydroCHLOROthiazide [Hydrodiuril] 25 mg PO DAILY cefTRIAXone [Rocephin] 1 dose IV Q8H Acetaminophen Tab [Tylenol] 650 mg PO Q6H PRN PRN Reason: Pain Discharge Medication List Levothyroxine Sodium [Synthroid] 50 mcg PO DAILY 08/27/21 [History] Simvastatin [Zocor] 20 mg PO HS 08/27/21 [History] hydroCHLOROthiazide [Hydrodiuril] 25 mg PO DAILY 08/27/21 [History] Acetaminophen Tab [Tylenol] 650 mg PO Q6H PRN 09/23/21 [History] cefTRIAXone [Rocephin] 1 dose IV Q8H 09/23/21 [History] HYDROcodone/APAP 5-325MG [[place] 5-325] 1 tab PO Q6HR PRN #21 tab 09/25/21 [Rx] Follow up Appointment(s)/Referral(s): Dotty Schuler DO [Primary Care Provider] - 1-2 days [facility], [NON-STAFF] - 1 Week [facility] [NON-STAFF] - 1 Week Toro Jose PAC [PHYSICIAN FISH HATCHERY SPECIALIST] - 10 Days Activity/Diet/Wound Care/Special Instructions: Discharge instructions: 1. Daily dressing changes 2. Keep incision covered and dry while showering for the first 35 days 3. Ice affected area of the 4. Plan for follow-up at [facility] in 10 days 5. Please contact office with any questions Discharge Disposition: HOME SELF-CARE
[2021-09-25 12:53] VITALS: BP 126/71; PULSE 74; TEMP 97.5
== END 2021-09-25 14:15 | disposition home or self-care (01) ==
LOC: EC 12:05 → INTOOBSV 12:49 → 5NMEDONC 12:49 → UNDODISIN 09-25 14:15
PROVIDERS: ADMIT Orthopaedic Surgery; ATTEND Orthopaedic Surgery
PROC: 0JBM0ZZ Excision of Left Upper Leg Subcutaneous Tissue and Fascia, Open Approach (ICD-10-PCS; principal; 2021-09-24 12:30)
DX: T81.41XA Infection following a procedure, superficial incisional surgical site, initial encounter (principal); L03.116 Cellulitis of left lower limb; M71.052 Abscess of bursa, left hip; Z20.822 Contact with and (suspected) exposure to COVID-19; M54.50 Low back pain, unspecified; H15.003 Unspecified scleritis, bilateral; E03.9 Hypothyroidism, unspecified; I10 Essential (primary) hypertension; Z79.890 Hormone replacement therapy; Z79.899 Other long term (current) drug therapy; Z98.890 Other specified postprocedural states; Z88.0 Allergy status to penicillin; Z88.2 Allergy status to sulfonamides; Z86.16 Personal history of COVID-19; Z86.010 Personal history of colon polyps; Z80.0 Family history of malignant neoplasm of digestive organs; Z82.49 Family history of ischemic heart disease and other diseases of the circulatory system
CPT/HCPCS: 11043; 99284; 96374; 96376; 36415; 86900; 86901; 80053; 83605; 85025; 85610; 85730; 86850; 87070; 87205; 87075; 87077; 87186; 87635; G0378 ×3; J2250; J2270 ×3; J0690 ×3; J2001; J3010; J1170; J0330; J2704

== ENCOUNTER 2021-10-06 13:36 | Day surgery (SDC) | payer MEDICARE ==
[2021-10-06 14:04] VITALS: TEMP 98.8
[2021-10-06] MEDS: IV FLUID CONTINUATION 800 ML IV ONE (14:04)
[2021-10-06] MEDS ORDERED: LACTATED RINGERS 1,000 ML IV ONE (14:19)
[2021-10-06] MEDS ORDERED: ONDANSETRON 4 MG/2 ML VIAL ONE (14:42)
[2021-10-06] MEDS ORDERED: MIDAZOLAM 2 MG/2 ML VIAL IV ONE (14:45)
[2021-10-06] MEDS ORDERED: DEXAMETHASONE SOD PHOSPHATE 4 MG/ML 1 ML VIAL IVP ONE (14:47)
--- NOTE | 2021-10-06 16:28 | P.HPOR ---
History of Present Illness H&P Date: 10/06/21 Chief Complaint: Left lateral hip area infection 76-year-old patient who was seen with a left lateral hip trochanteric bursal area infection/abscess. She has now undergone 2 previous incisions with irrigation debridement. She was noted to have some persistent drainage along the distal aspect of her incision. I recommended repeat incision with irrigation debridement. She was agreeable. Consent was obtained. Review of Systems Constitutional: Reports as per HPI Past Medical History Past Medical History: Hypertension, Thyroid Disorder Additional Past Medical History / Comment(s): COVID + 08/27/21, L hip pain/corticosteroid injections about every 3 months, occasional low back pain, past bilateral ankle edema, hypothyroid, benign colon polyps, bilateral eye scle ritis flare-ups. History of Any Multi-Drug Resistant Organisms: None Reported Past Surgical History: No Surgical Hx Reported Additional Past Surgical History / Comment(s): abscess surgery on left hip Past Anesthesia/Blood Transfusion Reactions: No Reported Reaction Past Psychological History: No Psychological Hx Reported Additional Psychological History / Comment(s): Pt resides with her spouse. She is independent. Smoking Status: Never smoker Past Alcohol Use History: None Reported Past Drug Use History: None Reported - Past Family History Father Additional Family Medical History / Comment(s): Heart issues Mother Family Medical History: Cancer Additional Family Medical History / Comment(s): Colon cancer Family Family Medical History: No Reported History Medications and Allergies Home Medications Medication Instructions Recorded Confirmed Type Levothyroxine Sodium [Synthroid] 50 mcg PO DAILY 08/27/21 10/06/21 History Simvastatin [Zocor] 20 mg PO HS 08/27/21 10/06/21 History hydroCHLOROthiazide [Hydrodiuril] 25 mg PO DAILY 08/27/21 10/06/21 History Acetaminophen Tab [Tylenol] 650 mg PO Q6H PRN 09/23/21 10/06/21 History HYDROcodone/APAP 5-325MG [[place] 1 tab PO Q6HR PRN #21 tab 09/25/21 10/06/21 Rx 5-325] ceFAZolin [Kefzol] 2 gm IVP Q8HR #30 ml 09/25/21 10/06/21 Rx Allergies Allergy/AdvReac Type Severity Reaction Status Date / Time Penicillins AdvReac Rash/Hives Verified 10/06/21 13:50 Sulfa (Sulfonamide AdvReac Rash/Hives Verified 10/06/21 13:50 Antibiotics) Physical Examination Osteopathic Statement: *. No significant issues noted on an osteopathic structural exam other than those noted in the History and Physical/Consult. The skin jennifer are in place. There is some very mild erythema along this aspect of the previous incision with some active serosanguineous type drainage. There is intact to palpation on that area. Logrolling of the hip is without pain. Distal neurovascular exam appears intact. Homans and Hiram are both negative. Assessment and Plan Assessment: Left lateral hip area infection/history of abscess Plan: Incision with irrigation and debridement left lateral hip area Time with Patient: Less than 30
[2021-10-06] MEDS ORDERED: SUCCINYLCHOLINE CHLORIDE 100 MG/5 ML SYR IV ONE (16:41)
[2021-10-06] MEDS ORDERED: LIDOCAINE 1% INJ 10MG/ML (20 ML MDV) ONE (16:41)
[2021-10-06] MEDS ORDERED: MIDAZOLAM 2 MG/2 ML VIAL ONE (16:41)
[2021-10-06] MEDS ORDERED: fentaNYL (PF) 50 MCG/ML 2 ML AMP ONE (16:41)
[2021-10-06] MEDS ORDERED: PROPOFOL 10 MG/ML 20 ML VIAL IV ONE (16:41)
[2021-10-06] MEDS ORDERED: CEFAZOLIN IRRIGATION ONE (17:16)
[2021-10-06] MEDS ORDERED: SODIUM CHLORIDE 0.9% IRRIGATION ONE (17:16)
--- NOTE | 2021-10-06 17:26 | P.OP ---
Date of Procedure: 10/06/21 Preoperative Diagnosis: Left lateral hip abscess Postoperative Diagnosis: Left lateral hip abscess Procedure(s) Performed: Incision with irrigation and incisional debridement left hip Anesthesia: EILEEN Surgeon: Wade Estrada Coupon Collection Clerk #1: Toro Jose Estimated Blood Loss (ml): 15 Pathology: other (Cultures) Condition: stable Disposition: PACU Indications for Procedure: 76-year-old patient who is seen with recurrent abscess left lateral hip area. I discussed incision with irrigation and debridement. Patient was agreeable. Consent was obtained. Operative Findings: See dictation of procedure Description of Procedure: Patient was taken to the operative suite. Patient received preoperative IV antibiotics. She underwent a general anesthetic by the department of anesthesia. She was transferred to the operative table place a lateral position with appropriate padding of the bony prominence axillary roll. Left hip was prepped and draped in the normal sterile orthopedic fashion. I made an incision over the previous cicatrix sharply through skin. Once it with a subcu soft tissues medially encountered a recurrent abscess. The purulent material was now evacuated. I irrigated the wound out copiously with mechanical Pulsavac with box with 1500 mL of antibiotic fluid. I then with assistance of a robert jose using retractors to hold the wound open performed and excisional debridement of necrotic appearing tissue utilizing a #15 blade excising subcutaneous tissue only. The eye T band was visualized and was stable. There was no communication with the capsular joint. Again explored the wound and noted good excision of any necrotic-appearing tissue. We now irrigated the wound out again with 4500 mL of antibiotic irrigant with pulse lavage irrigation. I asked for the wound and noted no residual necrotic-appearing tissue. We then methodically tack down the subcu soft tissues to the IT band and closed the subcu soft tissues utilizing 2-0 Vicryl with assistance of Robert FRANKLIN. I now repaired the skin with skin jennifer with assistance of Robert FRANKLIN sterile dressings were applied. The patient was awakened and transferred to recovery stable condition. She will resume her IV antibiotic treatment.
[2021-10-06 18:09] VITALS: RESP 16
[2021-10-06] MEDS ORDERED: HYDROmorphone 0.5 MG/0.5 ML SYRINGE IVP ONE ×2 (18:15→18:26)
[2021-10-06] MEDS ORDERED: KETOROLAC 15 MG/ML 1 ML VIAL IVP ONE (18:39)
[2021-10-06] MEDS ORDERED: HYDROcodone/APAP 5-325MG 1 EACH TAB ONE (18:54)
[2021-10-06] MEDS ORDERED: HYDROcodone/APAP 5-325MG 1 EACH TAB PO ONE (18:57)
[2021-10-06 19:17] VITALS: BP 133/61; PULSE 63
== END 2021-10-06 19:29 | disposition home or self-care (01) ==
LOC: OR 13:36
PROVIDERS: ATTEND Orthopaedic Surgery
DX: M71.052 Abscess of bursa, left hip (principal); I10 Essential (primary) hypertension; E03.9 Hypothyroidism, unspecified; H15.003 Unspecified scleritis, bilateral; M54.50 Low back pain, unspecified; Z86.16 Personal history of COVID-19; Z79.890 Hormone replacement therapy; Z79.899 Other long term (current) drug therapy; Z88.0 Allergy status to penicillin; Z88.2 Allergy status to sulfonamides; Z86.010 Personal history of colon polyps; Z82.49 Family history of ischemic heart disease and other diseases of the circulatory system; Z80.0 Family history of malignant neoplasm of digestive organs
CPT/HCPCS: 87070; 87205; 87075; 26990; J2250; J1100; J0690 ×2; J2405; J2001; J3010; J1885; J0330; J2704; J1170

== ENCOUNTER 2021-10-14 16:50 | Emergency (ER) | payer MEDICARE ==
[2021-10-14 17:29] VITALS: TEMP 97.8
[2021-10-14 17:51] LABS: Basophils # (A) 0.1 k/uL (0-0.2); Basophils % (A) 1 %; Eosinophils # (A) 0.2 k/uL (0-0.7); Eosinophils % (A) 2 %; HCT 37.8 % (34.0-46.0); HGB 12.3 gm/dL (11.4-16.0); Lymphocytes # (A) 1.3 k/uL (1.0-4.8); Lymphocytes % (A) 12 %; MCH 32.4 pg (25.0-35.0); MCHC 32.6 g/dL (31.0-37.0); MCV 99.5 fL (80.0-100.0); Mean Platelet Volume 7.2; Monocytes # (A) 0.6 k/uL (0-1.0); Monocytes % (A) 5 %; Neutrophils # (A) 8.9 k/uL (1.3-7.7); Neutrophils % (A) 79 %; Platelet Count 336 k/uL (150-450); RDW 13.6 % (11.5-15.5); WBC 11.3 k/uL (3.8-10.6)
[2021-10-14 17:59] LABS: Potassium 3.4 mmol/L (3.5-5.1)
[2021-10-14 18:00] LABS: Albumin 4.2 g/dL (3.5-5.0); Calcium 8.9 mg/dL (8.4-10.2); Magnesium 1.4 mg/dL (1.6-2.3); Total Bilirubin 0.5 mg/dL (0.2-1.3); Total Protein 7.4 g/dL (6.3-8.2)
[2021-10-14 18:13] LABS: INR 0.9 (<1.2); Partial Thromboplastin Time 22.2 sec (22.0-30.0); Prothrombin Time 9.9 sec (9.0-12.0)
[2021-10-14] MEDS ORDERED: SODIUM CHLORIDE 0.9% 1,000 ML IV STA ×2 (22:02)
[2021-10-14] MEDS ORDERED: IBUPROFEN 600 MG TAB PO STA (22:02)
[2021-10-14] MEDS ORDERED: ACETAMINOPHEN TAB 500 MG TAB PO STA (22:02)
--- NOTE | 2021-10-14 22:03 | ED ---
Weakness HPI - General Chief complaint: Arrhythmia/Palpitations Stated complaint: AFib Time Seen by Provider: 10/14/21 22:01 Source: patient, RN notes reviewed, old records reviewed Mode of arrival: wheelchair Limitations: no limitations - History of Present Illness Initial comments: This is a 76-year-old female to the emergency department for evaluation. Patient does have current PICC line that she is using for positive for infection. Patient has no current chest pain shortness breath abdominal pain just feeling weak and dizzy that she may have arrhythmia was little shakiness. MD Complaint: generalized weakness -: hour(s) Location: generalized Severity: moderate Severity scale (1-10): 4 Quality: tingling, aching Consistency: constant Improves with: none Worsens with: none Context: recent illness Associated Symptoms: denies other symptoms - Related Data Home Medications Medication Instructions Recorded Confirmed Levothyroxine Sodium [Synthroid] 50 mcg PO DAILY 08/27/21 10/14/21 Simvastatin [Zocor] 20 mg PO HS 08/27/21 10/14/21 hydroCHLOROthiazide [Hydrodiuril] 25 mg PO DAILY 08/27/21 10/14/21 Potassium Chloride ER [K-Dur 20] 20 meq PO DAILY 10/14/21 10/14/21 Previous Rx's Medication Instructions Recorded ceFAZolin [Kefzol] 2 gm IVP Q8HR #30 ml 09/25/21 Allergies Allergy/AdvReac Type Severity Reaction Status Date / Time Penicillins AdvReac Rash/Hives Verified 10/14/21 22:58 Sulfa (Sulfonamide AdvReac Rash/Hives Verified 10/14/21 22:58 Antibiotics) Review of Systems ROS Statement: Those systems with pertinent positive or pertinent negative responses have been documented in the HPI. ROS Other: All systems not noted in ROS Statement are negative. Past Medical History Past Medical History: Hypertension, Thyroid Disorder Additional Past Medical History / Comment(s): COVID + 08/27/21, L hip pain/co rticosteroid injections about every 3 months, occasional low back pain, past bilateral ankle edema, hypothyroid, benign colon polyps, bilateral eye scleritis flare-ups. History of Any Multi-Drug Resistant Organisms: None Reported Past Surgical History: No Surgical Hx Reported Additional Past Surgical History / Comment(s): abscess surgery on left hip Past Anesthesia/Blood Transfusion Reactions: No Reported Reaction Past Psychological History: No Psychological Hx Reported Smoking Status: Never smoker Past Alcohol Use History: None Reported Past Drug Use History: None Reported - Past Family History Father Additional Family Medical History / Comment(s): Heart issues Mother Family Medical History: Cancer Additional Family Medical History / Comment(s): Colon cancer Family Family Medical History: No Reported History General Exam Limitations: no limitations General appearance: alert, in no apparent distress Head exam: Present: atraumatic, normocephalic, normal inspection Eye exam: Present: normal appearance, PERRL, EOMI. Absent: scleral icterus, conjunctival injection, periorbital swelling ENT exam: Present: normal exam, mucous membranes moist Neck exam: Present: normal inspection. Absent: tenderness, meningismus, lymphadenopathy Respiratory exam: Present: normal lung sounds bilaterally. Absent: respiratory distress, wheezes, rales, rhonchi, stridor Cardiovascular Exam: Present: regular rate, normal rhythm, normal heart sounds. Absent: systolic murmur, diastolic murmur, rubs, gallop, clicks GI/Abdominal exam: Present: soft, normal bowel sounds. Absent: distended, tenderness, guarding, rebound, rigid Extremities exam: Present: normal inspection, full ROM, normal capillary refill. Absent: tenderness, pedal edema, joint swelling, calf tenderness Back exam: Present: normal inspection Neurological exam: Present: alert, oriented X3, CN II-XII intact Psychiatric exam: Present: normal affect, normal mood Skin exam: Present: warm, dry, intact, normal color. Absent: rash Course Vital Signs 10/14/21 10/14/21 10/15/21 17:26 23:00 00:00 Temperature 97.8 F Pulse Rate 93 68 Pulse Rate [ 68 Senior Php Developer ] Respiratory 20 18 Rate Blood Pressure 125/67 123/84 O2 Sat by Pulse 97 98 Oximetry 10/15/21 00:11 Temperature Pulse Rate 61 Pulse Rate [ Senior Php Developer ] Respiratory 18 Rate Blood Pressure 120/78 O2 Sat by Pulse 96 Oximetry - Reevaluation(s) Reevaluation #1: Medical record is reviewed Patient relatively symptomatic has no complaints here in the ER Patient informed results and questions answered Medical Decision Making - Medical Decision Making 76 female to the emergency department for evaluation of significant weakness polices in atrial fibrillation. Testing here in the emergency room is negative patient can be discharged home - Lab Data Result diagrams: 10/14/21 17:35 10/14/21 17:35 Lab Results 10/14/21 10/14/21 10/14/21 Range/Units 17:35 17:35 17:35 WBC 11.3 H (3.8-10.6) k/uL RBC 3.80 (3.80-5.40) m/uL Hgb 12.3 (11.4-16.0) gm/dL Hct 37.8 (34.0-46.0) % MCV 99.5 (80.0-100.0) fL MCH 32.4 (25.0-35.0) pg MCHC 32.6 (31.0-37.0) g/dL RDW 13.6 (11.5-15.5) % Plt Count 336 (150-450) k/uL MPV 7.2 Neutrophils % 79 % Lymphocytes % 12 % Monocytes % 5 % Eosinophils % 2 % Basophils % 1 % Neutrophils # 8.9 H (1.3-7.7) k/uL Lymphocytes # 1.3 (1.0-4.8) k/uL Monocytes # 0.6 (0-1.0) k/uL Eosinophils # 0.2 (0-0.7) k/uL Basophils # 0.1 (0-0.2) k/uL PT 9.9 (9.0-12.0) sec INR 0.9 (<1.2) APTT 22.2 (22.0-30.0) sec Sodium 133 L (137-145) mmol/L Potassium 3.4 L (3.5-5.1) mmol/L Chloride 96 L (98-107) mmol/L Carbon Dioxide 26 (22-30) mmol/L Anion Gap 11 mmol/L BUN 26 H (7-17) mg/dL Creatinine 0.99 (0.52-1.04) mg/dL Est GFR (CKD-EPI)AfAm 64 (>60 ml/min/1.73 sqM) Est GFR (CKD-EPI)NonAf 56 (>60 ml/min/1.73 sqM) Glucose 132 H (74-99) mg/dL Calcium 8.9 (8.4-10.2) mg/dL Magnesium 1.4 L (1.6-2.3) mg/dL Total Bilirubin 0.5 (0.2-1.3) mg/dL AST 27 (14-36) U/L ALT 6 (4-34) U/L Alkaline Phosphatase 79 (38-126) U/L Troponin I (0.000-0.034) ng/mL Total Protein 7.4 (6.3-8.2) g/dL Albumin 4.2 (3.5-5.0) g/dL 10/14/21 Range/Units 17:35 WBC (3.8-10.6) k/uL RBC (3.80-5.40) m/uL Hgb (11.4-16.0) gm/dL Hct (34.0-46.0) % MCV (80.0-100.0) fL MCH (25.0-35.0) pg MCHC (31.0-37.0) g/dL RDW (11.5-15.5) % Plt Count (150-450) k/uL MPV Neutrophils % % Lymphocytes % % Monocytes % % Eosinophils % % Basophils % % Neutrophils # (1.3-7.7) k/uL Lymphocytes # (1.0-4.8) k/uL Monocytes # (0-1.0) k/uL Eosinophils # (0-0.7) k/uL Basophils # (0-0.2) k/uL PT (9.0-12.0) sec INR (<1.2) APTT (22.0-30.0) sec Sodium (137-145) mmol/L Potassium (3.5-5.1) mmol/L Chloride (98-107) mmol/L Carbon Dioxide (22-30) mmol/L Anion Gap mmol/L BUN (7-17) mg/dL Creatinine (0.52-1.04) mg/dL Est GFR (CKD-EPI)AfAm (>60 ml/min/1.73 sqM) Est GFR (CKD-EPI)NonAf (>60 ml/min/1.73 sqM) Glucose (74-99) mg/dL Calcium (8.4-10.2) mg/dL Magnesium (1.6-2.3) mg/dL Total Bilirubin (0.2-1.3) mg/dL AST (14-36) U/L ALT (4-34) U/L Alkaline Phosphatase (38-126) U/L Troponin I <0.012 (0.000-0.034) ng/mL Total Protein (6.3-8.2) g/dL Albumin (3.5-5.0) g/dL - EKG Data -: EKG Interpreted by Me (EKG sinus a 94 HI 133 QRS OA QTc 412) - Radiology Data Radiology results: report reviewed (Chest x-rays negative for acute disease), image reviewed Disposition Clinical Impression: Weakness Disposition: HOME SELF-CARE Condition: Good Instructions (If sedation given, give patient instructions): Weakness (ED) Is patient prescribed a controlled substance at d/c from ED?: No Referrals: Dotty Schuler DO [Primary Care Provider] - 1-2 days
[2021-10-14] MEDS ORDERED: MAGNESIUM OXIDE 400 MG TAB PO STA (22:48)
[2021-10-14] MEDS ORDERED: MAGNESIUM OXIDE 400 MG TAB PO SCH (23:00)
--- NOTE | 2021-10-14 23:16 | XR ---
EXAMINATION TYPE: XR chest 1V portable DATE OF EXAM: 10/14/2021 COMPARISON: 08/27/2021 HISTORY: Weakness TECHNIQUE: Single view FINDINGS: There is no heart failure nor confluent pneumonic infiltrate. Costophrenic angles are clear . Thoracic aorta is atheromatous. There is left-sided central venous catheter with tip in the superio r vena cava. There is slight elevated right diaphragm. Bony thorax appears intact. IMPRESSION: Mild chronic elevation of the right diaphragm. No acute lung disease. No change.
[2021-10-15 00:06] VITALS: RESP 18
[2021-10-15] MEDS ORDERED: POTASSIUM BICARBONATE/CIT AC 20 MEQ TABLET.EFF PO ONE (00:06)
[2021-10-15 00:11] VITALS: BP 120/78; PULSE 61
== END 2021-10-15 00:22 | disposition home or self-care (01) ==
LOC: EC 16:50
DX: R53.1 Weakness (principal); I10 Essential (primary) hypertension; E03.9 Hypothyroidism, unspecified; Z79.890 Hormone replacement therapy; Z79.899 Other long term (current) drug therapy
CPT/HCPCS: 36415; 71045; 80053; 83735; 84484; 85025; 85610; 85730; 93005; 96360; 99285

== ENCOUNTER 2021-10-27 08:27 | Emergency (ER) | payer MEDICARE ==
[2021-10-27 08:33] VITALS: BP 131/66; PULSE 106; RESP 20; TEMP 98
--- NOTE | 2021-10-27 08:53 | ED ---
General Adult HPI - General Chief complaint: Recheck/Abnormal Lab/Rx Stated complaint: Picc line problems Time Seen by Provider: 10/27/21 08:35 Source: patient, RN notes reviewed Mode of arrival: ambulatory Limitations: no limitations - History of Present Illness Initial comments: 36-year-old female presents emergency Department with chief complaint of PICC line issues. Patient states she went to infuse her Kefzol this morning states it seemed to be leaking. She does have some irritation to the skin from fluid leaking. Patient states that she's had this PICC line for a week secondary to left hip infection. She states she believes she only has 2 more weeks she has an appointment in 10 days. Patient denies any fevers chills night sweats no inc rease in pain no chest pain or shortness breath no other symptoms. - Related Data Home Medications Medication Instructions Recorded Confirmed Levothyroxine Sodium [Synthroid] 50 mcg PO DAILY 08/27/21 10/14/21 Simvastatin [Zocor] 20 mg PO HS 08/27/21 10/14/21 hydroCHLOROthiazide [Hydrodiuril] 25 mg PO DAILY 08/27/21 10/14/21 Potassium Chloride ER [K-Dur 20] 20 meq PO DAILY 10/14/21 10/14/21 Previous Rx's Medication Instructions Recorded ceFAZolin [Kefzol] 2 gm IVP Q8HR #30 ml 09/25/21 Allergies Allergy/AdvReac Type Severity Reaction Status Date / Time Penicillins AdvReac Rash/Hives Verified 10/27/21 08:33 Sulfa (Sulfonamide AdvReac Rash/Hives Verified 10/27/21 08:33 Antibiotics) Review of Systems ROS Statement: Those systems with pertinent positive or pertinent negative responses have been documented in the HPI. ROS Other: All systems not noted in ROS Statement are negative. Past Medical History Past Medical History: Hypertension, Thyroid Disorder Additional Past Medical History / Comment(s): COVID + 08/27/21, L hip pain/corticosteroid injections about every 3 months, occasional low back pain, past bilateral ankle edema, hypothyroid, benign colon polyps, bilateral eye scleritis flare-ups. History of Any Multi-Drug Resistant Organisms: None Reported Past Surgical History: No Surgical Hx Reported Additional Past Surgical History / Comment(s): abscess surgery on left hip Past Anesthesia/Blood Transfusion Reactions: No Reported Reaction Past Psychological History: No Psychological Hx Reported Smoking Status: Never smoker Past Alcohol Use History: None Reported Past Drug Use History: None Reported - Past Family History Father Additional Family Medical History / Comment(s): Heart issues Mother Family Medical History: Cancer Additional Family Medical History / Comment(s): Colon cancer Family Family Medical History: No Reported History General Exam Limitations: no limitations General appearance: alert, in no apparent distress Head exam: Present: atraumatic, normocephalic, normal inspection Respiratory exam: Present: normal lung sounds bilaterally. Absent: respiratory distress, wheezes, rales, rhonchi, stridor Cardiovascular Exam: Present: regular rate, normal rhythm, normal heart sounds. Absent: systolic murmur, diastolic murmur, rubs, gallop, clicks Extremities exam: Present: other (Left arm there is noted PICC line, there is approximately 2-3 inches ofbetween insertion site and catheter end ) Neurological exam: Present: alert Skin exam: Present: warm, dry, intact, normal color. Absent: rash Course Vital Signs 10/27/21 08:31 Temperature 98 F Pulse Rate 106 H Respiratory 20 Rate Blood Pressure 131/66 O2 Sat by Pulse 98 Oximetry Medical Decision Making - Medical Decision Making Dressing was removed, redressed and flushed twice by RN with no leaking no complications. Patient feels comfortable discharged with her next infusion today. Disposition Clinical Impression: PIC line (peripherally inserted central catheter) flush Disposition: HOME SELF-CARE Condition: Stable Additional Instructions: Please return to the Emergency Department if symptoms worsen or any other concerns. Is patient prescribed a controlled substance at d/c from ED?: No Referrals: Dotty Schuler DO [Primary Care Provider] - 1-2 days Time of Disposition: 09:06
== END 2021-10-27 09:20 | disposition home or self-care (01) ==
LOC: EC 08:27
DX: T82.594A Other mechanical complication of infusion catheter, initial encounter (principal); I10 Essential (primary) hypertension; E03.9 Hypothyroidism, unspecified; Z79.890 Hormone replacement therapy; Z79.899 Other long term (current) drug therapy
CPT/HCPCS: 99283

== ENCOUNTER 2023-05-27 11:09 | Emergency (ER) | payer MEDICARE ==
[2023-05-27] MEDS ORDERED: KETOROLAC 15 MG/ML 1 ML VIAL IM STA (11:26)
[2023-05-27] MEDS ORDERED: MORPHINE SULFATE 4 MG/ML SYRINGE IM STA (11:27)
[2023-05-27] MEDS ORDERED: ORPHENADRINE 30 MG/ML 2 ML VIAL IM STA (11:27)
[2023-05-27 11:31] VITALS: BP 120/68; RESP 18; TEMP 97.7
--- NOTE | 2023-05-27 11:36 | ED ---
Extremity Problem HPI - General Chief complaint: Extremity Problem,Nontraumatic Stated complaint: left leg pain Time Seen by Provider: 05/27/23 11:15 Source: patient, RN notes reviewed Mode of arrival: ambulatory Limitations: no limitations - History of Present Illness Initial comments: This is a 78-year-old female who presents to the emergency department for left leg pain. Reports pain starting in the left lower back/buttocks going down the outside of the left leg over the last 2 weeks. Reports a history of sciatica and states that the pain feels similar. However, she is unable to get this pain under control and she is unable to sleep as a result of this. She saw her primary care provider, who did an x-ray of the back demonstrating arthritis and no other acute findings. She does have a history of a staph infection in this leg several years ago and is concerned about this contributing to her symptoms. At that time she did have severe swelling and redness to the leg. Denies any associated swelling or redness with this pain. Denies any injuries. She is taking tramadol home with no relief in symptoms. MD Complaint: extremity pain Onset/Timin -: week(s) Location: left, lower extremity - Related Data Home Medications Medication Instructions Recorded Confirmed Levothyroxine Sodium [Synthroid] 50 mcg PO DAILY 08/27/21 10/14/21 Simvastatin [Zocor] 20 mg PO HS 08/27/21 10/14/21 hydroCHLOROthiazide [Hydrodiuril] 25 mg PO DAILY 08/27/21 10/14/21 Potassium Chloride ER [K-Dur 20] 20 meq PO DAILY 10/14/21 10/14/21 Previous Rx's Medication Instructions Recorded ceFAZolin [Kefzol] 2 gm IVP Q8HR #30 ml 09/25/21 methocarbamoL [Robaxin-750] 1,500 mg PO TID PRN #30 tab 05/27/23 predniSONE 50 mg PO DAILY 5 Days #5 tab 05/27/23 Allergies Allergy/AdvReac Type Severity Reaction Status Date / Time Penicillins AdvReac Rash/Hives Verified 05/27/23 11:14 Sulfa (Sulfonamide AdvReac Rash/Hives Verified 05/27/23 11:14 Antibiotics) Review of Systems ROS Statement: Those systems with pertinent positive or pertinent negative responses have been documented in the HPI. ROS Other: All systems not noted in ROS Statement are negative. Past Medical History Past Medical History: Hypertension, Thyroid Disorder Additional Past Medical History / Comment(s): COVID + 08/27/21, L hip pain/corticosteroid injections about every 3 months, occasional low back pain, past bilateral ankle edema, hypothyroid, benign colon polyps, bilateral eye scleritis flare-ups. History of Any Multi-Drug Resistant Organisms: None Reported Past Surgical History: No Surgical Hx Reported Additional Past Surgical History / Comment(s): abscess surgery on left hip Past Anesthesia/Blood Transfusion Reactions: No Reported Reaction Past Psychological History: No Psychological Hx Reported Smoking Status: Never smoker Past Alcohol Use History: None Reported Past Drug Use History: None Reported - Past Family History Father Additional Family Medical History / Comment(s): Heart issues Mother Family Medical History: Cancer Additional Family Medical History / Comment(s): Colon cancer Family Family Medical History: No Reported History General Exam Limitations: no limitations General appearance: alert, in no apparent distress Head exam: Present: atraumatic, normocephalic, normal inspection Respiratory exam: Present: normal lung sounds bilaterally. Absent: respiratory distress, wheezes, rales, rhonchi, stridor Cardiovascular Exam: Present: regular rate, normal rhythm, normal heart sounds. Absent: systolic murmur, diastolic murmur, rubs, gallop, clicks Extremities exam: Present: other (Tenderness to palpation over the lateral aspect of the left thigh and some tenderness in the calf. No swelling or erythema. 2+ DP and PT pulses. Capillary refill less than 1 second.) Back exam: Present: tenderness (Left lower lumbar spine/buttocks) Neurological exam: Present: alert, oriented X3, CN II-XII intact Psychiatric exam: Present: normal affect, normal mood Skin exam: Present: warm, dry, intact, normal color. Absent: rash Course Vital Signs 05/27/23 11:11 Temperature 97.7 F Respiratory 18 Rate Blood Pressure 120/68 O2 Sat by Pulse 95 Oximetry Medical Decision Making - Medical Decision Making This is a 78-year-old female who presents to the emergency department for left leg pain. Was pt. sent in by a medical professional or institution? @ -No Did you speak to anyone other than the patient for history? @ -No Did you review nursing and triage notes? @ -Yes, and I agree, it is accurate with regards to the patient's symptoms. Were old charts reviewed? @ -No Differential Diagnosis? @ -Differential Leg Pain: Leg fracture, leg sprain, DVT, PVD, arterial insufficiency, iliac artery aneurysm, cellulitis, compartment syndrome, tendinopathy, nerve entrapment, piriformis syndrome, osteoarthritis, rhabdomyolysis, myositis, cramping from an electrolyte imbalance, this is not meant to be an all inclusive list. EKG interpreted by me (3pts min.)? @ -Not obtained X-rays interpreted by me (1pt min.)? @ -Not obtained CT interpreted by me (1pt min.)? @ -Not obtained U/S interpreted by me (1pt. min.)? @ -Duplex US of the left lower extremity obtained. My interpretation identifies no evidence of a DVT. What testing was considered but not performed? (CT, X-rays, U/S, labs)? Why? @ -None What meds were considered but not given? Why? @ -None Did you discuss the management of the patient with other professionals? @ -No Did you reconcile home meds? @ -No Was smoking cessation discussed for >3mins.? @ -No Was critical care preformed (if so, how long)? @ -No Were there social determinants of health that impacted care today? How? (Homelessness, low income, unemployed, alcoholism, drug addiction, transportation, low edu. Level, literacy, decrease access to med. care, prison, rehab)? @ -No Was there de-escalation of care discussed even if they declined? (Discuss DNR or withdrawal of care, Hospice)? @ -No What co-morbidities impacted this encounter? (DM, HTN, Smoking, COPD, CAD, Cancer, CVA, Hep., AIDS, mental health diagnosis, sleep apnea, morbid obesity)? @ -None Was patient admitted / discharged? @ -Discharged. Duplex ultrasound of the left lower extremity obtained revealing no acute process. The description of the patient's symptoms as well as the location is consistent with sciatica. Her symptoms were well controlled in the emergency department. Prescription for prednisone and Robaxin provided with dosing instructions reviewed. She will otherwise continue to take the tramadol with Tylenol she has at home for additional relief. She will follow-up with her PCP for reevaluation and orthopedic provider if needed. Undiagnosed new problem with uncertain prognosis? @ -None Drug Therapy requiring intensive monitoring for toxicity (Heparin, Nitro, Insulin, Cardizem)? @ -None Were any procedures done? @ -None Diagnosis/symptom? @ -Left sided sciatica Acute, or Chronic, or Acute on Chronic? @ -Acute Uncomplicated (without systemic symptoms) or Complicated (systemic symptoms)? @ -Uncomplicated Side effects of treatment? @ -None Exacerbation, Progression, or Severe Exacerbation] @ -Not applicable Poses a threat to life or bodily function? @ -The pain is having somewhat of an impact on her function. Return precautions reviewed in depth, the patient is instructed to return to the emergency department with any new, worsening, or concerning symptoms. Patient verbalized understanding. This case was discussed in detail with the attending ED physician, Dr. Alfonso. Presentation, findings, and treatment plan discussed in detail as well. - Radiology Data Radiology results: report reviewed, image reviewed Disposition Clinical Impression: Sciatica of left side Disposition: HOME SELF-CARE Instructions (If sedation given, give patient instructions): Sciatica (ED), Lumbar Radiculopathy (ED) Additional Instructions: Return to the emergency department with any new, worsening, or concerning symptoms. Take the prednisone daily for 5 days. You can take the Robaxin as 1- 2 tablets up to 3-4 times daily as needed for pain and tightness. Follow up with your primary care provider in 1-[address] Estrada for reevaluation. Prescriptions: predniSONE 50 mg PO DAILY 5 Days #5 tab methocarbamoL [Robaxin-750] 1,500 mg PO TID PRN #30 tab PRN Reason: Pain Is patient prescribed a controlled substance at d/c from ED?: No Referrals: Dotty Schuler DO [Primary Care Provider] - 1-2 days
--- NOTE | 2023-05-27 12:12 | US ---
EXAMINATION TYPE: US venous doppler duplex LE LT DATE OF EXAM: 05/27/2023 12:01 PM COMPARISON: Left lower extremity venous ultrasound 09/10/2021 CLINICAL INDICATION: Female, 78 years old with history of Leg pain; left shooting leg pain SIDE PERFORMED: Left TECHNIQUE: The lower extremity deep venous system is examined utilizing real time linear array sonog ofelia with graded compression, doppler sonography and color-flow sonography. VESSELS IMAGED: Common Femoral Vein Deep Femoral Vein Greater Saphenous Vein * Femoral Vein Popliteal Vein Small Saphenous Vein * Proximal Calf Veins (* superficial vessels) Grayscale, color doppler, spectral doppler imaging performed of the deep veins of the left lower extr emity. There is normal flow, compressibility, vascular waveforms. Left Leg: Negative for DVT IMPRESSION: No deep venous thrombosis of the left lower extremity.
[2023-05-27] MEDS ORDERED: DEXAMETHASONE SOD PHOSPHATE 10 MG/ML 1 ML VIAL IM STA (12:22)
== END 2023-05-27 13:26 | disposition home or self-care (01) ==
LOC: EC 11:09
DX: M54.32 Sciatica, left side (principal); I10 Essential (primary) hypertension; E03.9 Hypothyroidism, unspecified; Z79.890 Hormone replacement therapy; Z79.899 Other long term (current) drug therapy; Z88.0 Allergy status to penicillin; Z88.2 Allergy status to sulfonamides; Z86.16 Personal history of COVID-19
CPT/HCPCS: 93971; 99284; 96372 ×4; J2270; J1100; J2360; J1885

== ENCOUNTER → 2023-06-01 | Outpatient (CLI) | payer MEDICARE ==
--- NOTE | 2023-06-01 14:31 | MR ---
EXAMINATION TYPE: MR lumbar spine wo/w con DATE OF EXAM: 06/01/2023 COMPARISON: HISTORY: Lower back pain, LLE radiculopathy. CONTRAST: 0 mL intravenous Gadavist. TECHNIQUE: Multiplanar, multisequence images of the lumbar spine were acquired. FINDINGS: L5-S1: No significant disc bulge or disc herniation. No spinal canal stenosis. No foraminal stenosi s. . L4-L5: Mild disc bulge is present with anterior thecal sac flattening. No AP spinal canal stenosis is present. Neural foramen are patent. No spinal canal stenosis. No foraminal stenosis. . L3-L4: There is a very large disc herniation into the central left paracentral canal with AP spinal c anal stenosis and displacement of the thecal sac towards the right. Left foraminal stenosis is presen t. This measures 1.7 cm in craniocaudal dimension by 1.0 cm AP by 2.0 cm transverse. L2-L3: No significant disc bulge or disc herniation. No spinal canal stenosis. No foraminal stenosi s. L1-L2: No significant disc bulge or disc herniation. No spinal canal stenosis. No foraminal stenosi s. T12-L1: No significant disc bulge or disc herniation. No spinal canal stenosis. No foraminal stenos is. IMPRESSION: 1. 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 2. Mild broad-based disc bulge L4-5 with anterior thecal sac flattening
== END | disposition home or self-care (01) ==
LOC: RADMRIMAIN 11:11
PROVIDERS: ATTEND Family Medicine
DX: M51.16 Intervertebral disc disorders with radiculopathy, lumbar region (principal); M48.061 Spinal stenosis, lumbar region without neurogenic claudication; M99.73 Connective tissue and disc stenosis of intervertebral foramina of lumbar region; M79.10 Myalgia, unspecified site
CPT/HCPCS: 72158; A9585

== ENCOUNTER → 2023-08-27 | Outpatient (CLI) | payer MEDICARE | END | disposition home or self-care (01) | LOC: LABPAT 09:47 | PROVIDERS: ATTEND Orthopaedic Surgery | DX: Z01.812 Encounter for preprocedural laboratory examination (principal); M51.26 Other intervertebral disc displacement, lumbar region; M48.061 Spinal stenosis, lumbar region without neurogenic claudication; Z22.322 Carrier or suspected carrier of Methicillin resistant Staphylococcus aureus | CPT/HCPCS: 86850; 86900; 86901; 87070 ==

== ENCOUNTER 2023-09-06 05:38 | Observation (INO) | payer MEDICARE ==
--- NOTE | 2023-09-05 16:10 | P.HPOR ---
History of Present Illness H&P Date: 08/27/23 .D:Date: 08/27/23 : 08:39am .T:Title: Elise[facility] History and Physical Date of :45 [id number]: NKDA Age: 78 year Height: 5'3" Weight: 175 lbs BP:121/72 BMI: 31.00 kg/m2 Occupation: Retired VAS: 6 Hand:Right IMPRESSION: It was my pleasure to have seen and examined Lenka. I reviewed the patient's clinical syndrome, physical findings, and imaging studies during the appointment today. It is my impression that the patient has a diagnosis of. 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 Mild grade 1 anterolisthesis L2 and L3 3. Neurogenic claudication 4.Left lower extremity radiculopathy I outlined the natural course history without intervention and various interventional options. Spine Surgery Risk Review Ms. Pepper is presenting for evaluation of low back and left lower extremity pain, left lower extremity numbness, tingling, and weakness. It was my pleasure to have seen and examined Ms. Pepper. In our visit today we have had a chance to go over subjective complaints, physical examination findings and treatments including the natural course history without intervention and various interventional options. The patients imaging demonstrates: XRay Lumbar Multiview (AP, Lateral, Flexion, Extension) with AP pelvis; 5 views taken at [facility] on 06/11/23: - Re-reviewed with the patient today. moderate to severe multilevel spondylitic and degenerative changes with scoli otic curvature. Multilevel diminished disc height. Mild grade 1 anterolisthesis L2 onto L3. No acute osseous abnormalities. AP Pelvis: The visualized sacrum and iliac wings are within normal limits. MRI [facility] at [facility] from06/01/23 of LumbarSpine: - Re-reviewed with the patient today. IMPRESSION: 1. 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 2. Mild broad-based disc bulge L4-5 with anterior thecal sac flattening On physical exam, Ms. Pepper demonstrates: A severe sharp lumbar pain that has been persistent for the past 6 weeks. Patient denies any injury or trauma to indicate the exact onset of symptoms. In addition to her lumbar pain she reports that it radiates into the left lower extremity. Ms. Pepper does state that her symptoms are exacerbated with any activity. patient does report left lower extremity weakness. I have explained to the patient that as their condition progresses it will cause further neurological deficits and eventual paralysis. Based on the patients imaging, physical exam, and the rapid progression and disabling nature of their symptoms, at this time I recommend surgery in the form of a: L3-4 decompression and fusion. I discussed the risk and benefits of this procedure at length with Ms. Pepper. The patient agreed to considered pursuing the procedure abovementioned. Prior to surgery, she should follow up with her PCP (Cardio, ID, IM etc) for clearance. Questions were invited and answered, and the patient wishes to proceed as outlined below. Currently, I am recommendin.L3-4 decompression and fusion 2.Review of surgical risks and benefits as well as an educational packet on the proposed surgical procedure. Risks: All surgical procedures come with inherent risks, including those related to positioning, anesthesia, intraoperative findings, and postoperative complications. It is important to understand that surgery does not come with any guarantee of a successful outcome as complications and adverse events are always possible. The patient was given a handout in office today discussing the surgical procedure and risks associated with the intervention, both of which were discussed with the patient. These risks include but are not limited to the following: * Experiencing same, different or even worse symptoms in back, neck, arms, or legs compared to before surgery. Requiring further surgery or other forms of treatment presently or at some time in the future at same or other levels of the intended spine surgery. On an extreme but fortunately relatively rare basis severe complication such as blindness, stroke, heart attack, temporary and/or permanent nerve injury, paralysis, coma, or may occur, sometimes without known explanation. Surgical complications may include but are not limited to risk of infection, fluid accumulation in the surgical dissection site, including a seroma or hematoma, that requires additional surgery, wound drainage, bleeding, new numbness or weakness, vision changes/loss, spinal fluid leakage, non-healing and/or infected incision, headaches, difficulty or inability to swallow, hoarseness, hemopneumothorax, pneumothorax, impotence, retrograde ejaculation, vaginal dryness; injury to nerves, spinal cord, blood vessels, lymphatics or other vital organs (i.e., bowel injury, injury to the great vessels); heterotopic bone formation; complications related to the hardware such as screws, rods, cages including misplaced hardware, device failure, instrumentation at the wrong spine level, hardware fracture/breakage, or hardware loosening; vertebral failure of the spinal column above or below the newly placed hardware; retained surgical instrumentations or devices and the need for further surgery. * Medical risks of the planned spine surgery include but are not limited to generalized Infections to the whole body or local areas outside of the surgical site (sepsis), heart attack, bleeding, anaphylaxis, meningitis, seizure, epilepsy, hearing loss, burn morton, laceration of the head or other areas of the body, bruising, hypersensitivity of the skin, bladder over distension; allergic reaction; shoulder injury related to positioning; fat, blood and air clots to other areas of the body like heart, lungs, brain; failure of internal organs such as lungs, kidneys, liver and excessive bleeding. If blood transfusions are necessary, note that transfusions may cause intolerance reactions such as anaphylaxis or other complex reactions. Despite best efforts, the results of spine surgery might not heal in terms of bone, soft tissues such as skin, fascia, ligaments, and joints. Additionally, in order to achieve best possible results, spine surgery may be carried out beyond the initially planned levels and involve decompression, fusion including insertion of hardware at levels other than the original intended area of surgical interest change some portions of the procedure in order to ensure the best possible outcomes. With spine surgery and spinal fusion, there are different off label uses of instrumentation (devices, implants and hardware) as well as biological substances (bone morphogenic proteins, demineralized bone matrix) as well as using extra bone from allograft sources (i.e. cadaver bone) or autograft (iliac crest bone, ribs, or the spine itself). The patient has been given information about these practices and their inherent risks and benefits. [facility] is an educational center that serves as a training facility for neurosurgical and orthopedic MEDICAL FRONT DESK SPECIALIST and Nursing students. Physician assistants are medically trained surgical providers who function in the outpatient, inpatient, and operating room setting under the direct supervision of the attending surgeon. [facility] has multiple operating rooms with single and overlapping rooms running daily. They currently function under the required guidelines as produced by the [facility] Finance Committee with regards to the overlapping rooms and will continue to comply with changes to this policy as they occur. The requirements include and are complied with as follows: (1) the critical portions of the overlapping rooms will not occur at the same time, (2) the attending ph ysician will be physically present during the critical portions of the procedure and immediately available during the entire case, and (3) a back-up attending is designated should the primary attending not be immediately available. The patient has had a chance to review all the listed information, has been given print outs detailing this information, and has had all his/her questions answered to their satisfaction. It was my pleasure to have seen and examined Ms. Pepper. In our visit today we have had a chance to go over my understanding of our patient's current condition, the natural course history without intervention and various interventional options. Questions were invited and answered, and the patient wishes to proceed as outlined above. I have seen and examined the patient for 25 minutes and we have spent more than 50% of the time in repeat and detailed counseling about the patient's condition, its natural course history with out and as much as can be predicted with surgery and re-review of various surgical treatment options. In conclusion, Ms. Pepper and requested we proceed with the above suggested surgery and are willing to accept risks and limitations of the suggested surgery as nature of the disease process and our best attempts at treatment for the condition. Thank you again for allowing us to be part of your patient's care. Please don't hesitate to contact me if you have any further questions. Follow- up: Post procedure Patient Education: (Informational booklet, instructions, etc) given at today's appointment: Yes .ED:Patient Education: Y Medications Reviewed: YES In our visit today Ms. Pepper and I have had a chance to go over my understanding of the patient's current condition, the natural course history without intervention and various interventional options. Questions were invited and answered, and the patient wishes to proceed as outlined above. I will be sure to keep you updated afterMs. Pepper returns here for further follow-up. Thank you again for your referral. Please do not hesitate to contact me if you have any further questions. Signed and authenticated by: Agus Baltazar [facility] [address] [facility], [address] [address] This message is confidential, intended only for the named recipient(s) and may contain information that is privileged or exempt from disclosure under applicable law. If you are not the intended recipient(s), you are notified that the dissemination, distribution or copying of this information is strictly prohibited. If you received this message in error, please notify the sender then delete this message. Patient verbalizes understanding of the information discussed. The above note was initiated by Hyacinth Flower, physician recording assistant pressman for Dr. Agus Triplett. This note has been reviewed by Dr. Triplett, who has made his personal changes and impressions for this document. CC: Dotty Schuler D.O. # SIGNED BY Agus Triplett ([facility])09/01/2023 08:02AM Past Medical History Past Medical History: Hyperlipidemia, Hypertension, Thyroid Disorder Additional Past Medical History / Comment(s): L hip pain/corticosteroid injections about every 3 months, occasional low back pain, past bilateral ankle edema, hypothyroid, benign colon polyps, bilateral eye scleritis flare-ups. bursitis History of Any Multi-Drug Resistant Organisms: None Reported Past Surgical History: No Surgical Hx Reported Additional Past Surgical History / Comment(s): abscess surgery on left hip( multiple) Past Anesthesia/Blood Transfusion Reactions: No Reported Reaction Smoking Status: Never smoker - Past Family History Father Additional Family Medical History / Comment(s): Heart issues Mother Family Medical History: Cancer Additional Family Medical History / Comment(s): Colon cancer Family Family Medical History: No Reported History Medications and Allergies Home Medications Medication Instructions Recorded Confirmed Type Levothyroxine Sodium [Synthroid] 75 mcg PO DAILY 08/27/21 08/30/23 History Simvastatin [Zocor] 20 mg PO HS 08/27/21 08/30/23 History hydroCHLOROthiazide [Hydrodiuril] 25 mg PO DAILY 08/27/21 08/30/23 History methocarbamoL [Robaxin-750] 1,500 mg PO TID PRN #30 tab 05/27/23 08/30/23 Rx Allgergy Eye Drops(Unk) 1 applic BOTH EYES DIRECTED PRN 08/30/23 08/30/23 History Celecoxib [CeleBREX] 200 mg PO DAILY 08/30/23 09/03/23 History Cetirizine HCl [Zyrtec] 10 mg PO DAILY 08/30/23 08/30/23 History Propranolol LA [Inderal LA] 80 mg PO DAILY 08/30/23 08/30/23 History Allergies Allergy/AdvReac Type Severity Reaction Status Date / Time Penicillins AdvReac Rash/Hives Verified 08/30/23 14:37 Sulfa (Sulfonamide AdvReac Rash/Hives Verified 08/30/23 14:37 Antibiotics) Physical Examination Osteopathic Statement: *. No significant issues noted on an osteopathic structural exam other than those noted in the History and Physical/Consult.
[~2023-09-06 05:38] MED LIST: GABAPENTIN 300 MG CAP PO PRN; TRANEXAMIC 1,000 MG/100ML-NACL 1,000 MG in SALINE 1 100ML.BAG IVPB PRN
[2023-09-06] MEDS: LACTATED RINGERS 1,000 ML IV SCH (06:21)
[2023-09-06] MEDS: ACETAMINOPHEN TAB 500 MG TAB PO PRN (06:29)
[2023-09-06] MEDS: ONDANSETRON 4 MG/2 ML VIAL IVP PRN (06:55)
[2023-09-06 06:57] LABS: Glucose,Whole Blood 92 mg/dL (70-110)
[2023-09-06] MEDS ORDERED: MIDAZOLAM 2 MG/2 ML VIAL IV PRN (07:00)
[2023-09-06] MEDS ORDERED: PROPOFOL 10 MG/ML 20 ML VIAL IV ONE (07:32)
[2023-09-06] MEDS ORDERED: ROCURONIUM 10 MG/ML (5 ML VIAL) IV ONE (07:32)
[2023-09-06] MEDS ORDERED: DEXAMETHASONE SOD PHOSPHATE 4 MG/ML 1 ML VIAL ONE (07:32)
[2023-09-06] MEDS ORDERED: LIDOCAINE 1% INJ 10MG/ML (20 ML MDV) ONE (07:32)
[2023-09-06] MEDS ORDERED: ePHEDrine 50 MG/ML 1 ML VIAL ONE (07:32)
[2023-09-06] MEDS ORDERED: MIDAZOLAM 2 MG/2 ML VIAL ONE (07:32)
[2023-09-06] MEDS ORDERED: KETAMINE HCL IN 0.9 % NACL 50 MG/5 ML SYRINGE ONE (07:32)
[2023-09-06] MEDS ORDERED: NEOSTIGMINE 1 MG/ML 10 ML VIAL ONE (07:32)
[2023-09-06] MEDS ORDERED: HYDROmorphone (PF) 1 MG/ML ONE (07:32)
[2023-09-06] MEDS ORDERED: GLYCOPYRROLATE 0.2 MG/ML 2 ML VIAL ONE (07:32)
[2023-09-06] MEDS ORDERED: SUCCINYLCHOLINE CHLORIDE 200 MG/10 ML VIAL IV ONE (07:32)
[2023-09-06] MEDS ORDERED: TRANEXAMIC 1,000 MG/100ML-NACL PREMIX BAG ONE (07:32)
[2023-09-06] MEDS ORDERED: fentaNYL (PF) 50 MCG/ML 2 ML AMP ONE (07:32)
[2023-09-06] MEDS ORDERED: WATER FOR INJECTION, STERILE 10 ML VIAL IV ONE (07:32)
[2023-09-06] MEDS: GENTAMICIN 80 MG in SODIUM CHLORIDE 0.9% IRRIGATIO 3,000 ML IRRIGATION ONE (08:15)
[2023-09-06] MEDS: GELATIN SPONGE,ABSORB (LARGE) 1 EACH SPONGE TOPICAL ONE (08:15)
[2023-09-06] MEDS: THROMBIN (BOVINE) 5,000 UNIT VIAL TOPICAL ONE (08:15)
[2023-09-06] MEDS: ceFAZolin 3,000 MG in SODIUM CHLORIDE 0.9% IRRIGATIO 3,000 ML IRRIGATION ONE (08:15)
[2023-09-06] MEDS: VANCOMYCIN 1,000 MG VIAL MISCELLANE ONE (09:36)
--- NOTE | 2023-09-06 10:03 | P.OP ---
Date of Procedure: 09/06/23 Preoperative Diagnosis: L3-4 HNP WITH SEVERE STENOSIS WITH RADICULOPATHY LE WEAKNESS LE PARESTHESIAS LOW BACK PAIN Postoperative Diagnosis: L3-4 HNP WITH SEVERE STENOSIS WITH RADICULOPATHY LE WEAKNESS LE PARESTHESIAS LOW BACK PAIN Procedure(s) Performed: L3-4 POSTEROLATERAL AND INTERBODY FUSION L3-4 INSTRUMENTATION L3-4 BILATERAL LAMINECTOMY WITH COMPLETE FACETECOMY AND FORAMINOTOMY FOR DECOMPRESSION AND CAGE PLACEMENT L3-4 INSERTION OF BIOMECHANICAL DEVICE (CAGE) USE OF [employer] NAVIGATION FOR SCREW PLACEMENT USE OF IONM ALL SCREWS TESTING >20 mA Implants: lIFE SPINE ARX SCREWS, 6.0 MM JAMES, CROSS LINK X1 GLOBUS SABLE CAGE [id number] DEG MAGNATOS AUTOGRAFT ALLOGRAFT IFACTOR Anesthesia: GETA Surgeon: Agus Triplett Metal Riveter #1: Leonides Carroll (WAS PRESENT AND ASSISTEE WITH ALL ASPECTS FROM POSITION TO CLOSURE) Estimated Blood Loss (ml): 150 IV fluids (ml): 1,200 Urine output (ml): 200 Pathology: none sent Condition: stable Disposition: PACU Indications for Procedure: Ms. Pepper is presenting for evaluation of low back and left lower extremity pain, left lower extremity numbness, tingling, and weakness. It was my pleasure to have seen and examined Ms. Pepper. In our visit today we have had a chance to go over subjective complaints, physical examination findings and treatments including the natural course history without intervention and various interventional options. The patients imaging demonstrates: XRay Lumbar Multiview (AP, Lateral, Flexion, Extension) with AP pelvis; 5 views taken at [facility] on 06/11/23: - Re-reviewed with the patient today. moderate to severe multilevel spondylitic and degenerative changes with scoliotic curvature. Multilevel diminished disc height. Mild grade 1 anterolisthesis L2 onto L3. No acute osseous abnormalities. AP Pelvis: The visualized sacrum and iliac wings are within normal limits. MRI [facility] at [facility] from06/01/23 of LumbarSpine: - Re-reviewed with the patient today. IMPRESSION: 1. 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 2. Mild broad-based disc bulge L4-5 with anterior thecal sac flattening On physical exam, Ms. Pepper demonstrates: A severe sharp lumbar pain that has been persistent for the past 6 weeks. Patient denies any injury or trauma to indicate the exact onset of symptoms. In addition to her lumbar pain she reports that it radiates into the left lower extremity. Ms. Pepper does state that her symptoms are exacerbated with any activity. patient does report left lower extremity weakness. I have explained to the patient that as their condition progresses it will cause further neurological deficits and eventual paralysis. Based on the patients imaging, physical exam, and the rapid progression and disabling nature of their symptoms, at this time I recommend surgery in the form of a: L3-4 decompression and fusion. I discussed the risk and benefits of this procedure at length with Ms. Pepper. The patient agreed to considered pursuing the procedure abovementioned. Prior to surgery, she should follow up with her PCP (Cardio, ID, IM etc) for clearance. Questions were invited and answered, and the patient wishes to proceed as outlined below. Currently, I am recommendin.L3-4 decompression and fusion Description of Procedure: L3-4 OPEN PLIBF The patient was seen and examined in the preoperative area. All preoperative protocols were followed. Informed consent was obtained, risks and benefits of the procedure were discussed at length. Risks including bleeding infection damage to the surrounding tissue and risk of reoperation were discussed with the patient. Risk of anesthesia up to and including was discussed with the patient. These are outlined in the risk review. They were willing to accept these risks and all the risks of surgery. The patient was given a weight-based dose of antibiotics in the form of 2 g Ancef. The patient was seen and evaluated by the anesthesia team who deemed them fit for surgery. The site was marked, the patient was willing to proceed with the procedure. The patient was transferred to the operative suite by the Department of anesthesia. They were then drifted off to sleep by the department anesthesia and GETA was performed. The patient tolerated this well. Mcgregor catheter was placed by nursing staff, a-traumatically. Once confirmation of lines and ventilation the patient was transferred to a prone Mat table very carefully. All bony prominences including wrists, elbows, axilla, chest, hips, and thighs, and feet were padded very well. Special attention was paid to the genitalia, and these were padded accordingly. SCDs were placed on bilateral lower extremities and were connected. Arms were well padded and placed on arm boards up and out in the 90/90 position. Once in position, again we confirmed good ventilation capabilities and that lines were running appropriately. The patients Lumbar spine was then exposed. 1010s were placed outlining the incision site. Standard alcohol was used to clean the incision site and allowed to dry. C-arm was used to needle localize the pedicles at L3-5 and bio-maxine the patient and confirm level for incision which was marked with a skin marker. Operative briefing was performed with all teams and everyone in agreement to proceed. The patient was then prepped and draped in a normal sterile fashion. Timeout was then performed, and all parties agreed with the procedure to be performed. Midline skin incision was made over the previously bio-marked area and dissection taken down over the SP of L2-4. L3-4 was taken out over facet joints and TPs and a penfield 4 used to maxine the L3 pedicle. Lateral image used to confirm levels. Once confirmed, screws were placed b/l at pedicles from L3-4 using [employer] navigation. Tracker was placed and a 3D Zhiem spin registered. Once confirmed to be accurate, navigated Yael was used to create a menhaden vessel pilot hole, Navigated awl tap then passed then a ball tip feeler to confirm within the pedicles. Screw was measured and placed. using a navigated dolly driver. Once screws were placed they were confirmed to be in good position using AP and Lateral fluoroscopy. The wound was then irrigated. Screws were tested and all tested above 20 mA. We then proceeded to decompression and cage placement. Attention was then turned to interbody fusion at L3-4. Bilateral laminectomy, complete facetectomy and foraminotomy performed at L3-4 using high speed yael and Kerrison rongeur. The ligamentum was removed and the dural sac decompressed. Exiting and traversing roots visualized and decompressed. Right side disc herniation was identified as extraforaminal and removed. Neural elements were then protected, and disc space accessed with an osteotome. Sequential shaving then done under lateral imaging and complete discectomy performed using glen, pituitary and curette. This was done bilateral. The cage was then selected and impacted into place under lateral imaging bilaterally. The cage were then expanded sequentially, restoring height, lordosis and alignment. The cages were then backfilled with bone graft through a funnel. The slubber operator was removed and the area inspected. Good cage placement, stable cage and no injuries. Area was irrigated copiously, and meticulous hemostasis achieved. The tubular retractor was then removed under direct visualization. Rods were then sized and selected and placed into L4 screws b/l. Set screws locked these in place and then sequentially reduced into L3 b/l for reduction. This was accomplished. Set screws were then all placed and final tightened. A cross link was selected and placed and final tightened. TPs were then decorticated with a high speed yael. The wound was irrigated with 3L ancef irrigation, 3L gentamicin irrigation and 3L NSS. Surgicel was placed over the dura. Autograft and Ventris then placed in the posterolateral gutters and impacted into place. Deep drain placed and secured to the skin. 2 g Vancomycin powder placed in the wound bed. Final images confirmed good placement of hardw are and good reduction of listhesis as well as buddhism of height and lordosis. Facia was then closed with #1 PDS then oversewn with 1 PDS stratafix. Deep subq closed with 0 Vicryl. Superficial subq closed with 0 PDS stratafix Vicryl and skin with jennifer. Wound edges approximated very well. Wound was then cleaned with alcohol and dried. Wounds dressed with Optifoam dressings. The patient was then transferred off the table back to their hospital bed a- traumatically. Drain continued to hold suction. They were extubated by the department of anesthesia. They were then transferred to PACU in stable condition having tolerated the procedure with no complications.
[2023-09-06] MEDS ORDERED: HYDROmorphone 1 MG/ML 1 ML SYRINGE IVP PRN (10:09)
[2023-09-06] MEDS ORDERED: MAGNESIUM HYDROXIDE 2,400 MG/30 ML CUP PO PRN (10:09)
[2023-09-06] MEDS ORDERED: HYDROmorphone 0.5 MG/0.5 ML SYRINGE IVP PRN (10:09)
--- NOTE | 2023-09-06 10:18 | FL ---
EXAMINATION TYPE: FL guidance operating room, XR lumbar spine 2 or 3V Intraoperative/procedural fluor oscopic services were provided. Total fluoroscopy time is 32 seconds with a total of 10 submitted cedric ges to PACS. Please see the operative/procedural note for further details. DAP: 3226.63 cGycm2
[2023-09-06] MEDS: HYDROmorphone 0.5 MG/0.5 ML SYRINGE IVP PRN (10:51)
[2023-09-06] MEDS: fentaNYL (PF) 50 MCG/ML 2 ML AMP IVP ONE (12:05)
[2023-09-06 12:08] LABS: Glucose,Whole Blood 139 mg/dL (70-110)
[2023-09-06] MEDS: ONDANSETRON 4 MG/2 ML VIAL IVP ONE (12:14)
[2023-09-06] MEDS ORDERED: ONDANSETRON 4 MG/2 ML VIAL IVP PRN (13:21)
--- NOTE | 2023-09-06 13:21 | P.CONS ---
History of Present Illness - Reason for Consult Consult date: 09/06/23 - History of Present Illness 78 year old F with PMH of hypertension, seasonal allergies, dyslipidemia, hypothyroidism presents to [facility] for elective [facility]. She underwent L3-[address] Triplett. [facility] consulted for medical management of this patient. 09/06 She is seen and examined postoperatively. There was some complications with uncontrolled pain requiring Dilaudid and Fentanyl. She also reports fatigue and nausea. POC glucose 92-139. General: Non toxic, mild distress, appears at stated age Derm: Warm, dry Head: Atraumatic, normocephalic, symmetric Eyes: EOMI, no lid lag, anicteric sclera Mouth: No lip lesion, mucus membranes moist Cardiovascular: S1S2 tachy, no murmur Lungs: Clear to auscultation BS bilateral, no rhonchi, no rales Ext: No gross muscle atrophy, no edema, no contractures Neuro: no focal neuro deficits Psych: Alert, oriented, appropriate affect Based on my assessment of this patient, this patient meets a moderate complexity level of care. Patient has an chronic diagnosis of hypertension, seasonal allergies, dyslipidemia, hypothyroidism. Hypertension: HCTZ 25 mg PO QD. Propranolol 80 mg PO QD. Seasonal allergies: Zyrtec 10 mg PO QD. Dyslipidemia: Simvastatin 20 mg PO QHS. Hypothyroidism: Synthroid 75 mcg PO QD. CODE STATUS: FULL CODE. DVT Prophylaxis: SCDs. GI Prophylaxis: Designated medical POA if patient is not able to make medical decisions for themselves: I have reviewed the following sales support consultant notes: Operative note. Orthopedic H&P. I have reviewed the results of the following tests: POC glucose. I have ordered the following tests: Agree with CBC and BMP. I have discussed the care of this patient with the following independent historian: I have independently interpreted the following test below: I have discussed the management of this patient with the following physician: Past Medical History Past Medical History: Hyperlipidemia, Hypertension, Thyroid Disorder Additional Past Medical History / Comment(s): L hip pain/corticosteroid injections about every 3 months, occasional low back pain, past bilateral ankle edema, hypothyroid, benign colon polyps, bilateral eye scleritis flare-ups. bursitis History of Any Multi-Drug Resistant Organisms: None Reported Past Surgical History: No Surgical Hx Reported Additional Past Surgical History / Comment(s): abscess surgery on left hip( multiple) Past Anesthesia/Blood Transfusion Reactions: No Reported Reaction Smoking Status: Never smoker - Past Family History Father Additional Family Medical History / Comment(s): Heart issues Mother Family Medical History: Cancer Additional Family Medical History / Comment(s): Colon cancer Family Family Medical History: No Reported History Medications and Allergies Home Medications Medication Instructions Recorded Confirmed Type Levothyroxine Sodium [Synthroid] 75 mcg PO DAILY 08/27/21 09/06/23 History Simvastatin [Zocor] 20 mg PO HS 08/27/21 09/06/23 History hydroCHLOROthiazide [Hydrodiuril] 25 mg PO DAILY 08/27/21 09/06/23 History methocarbamoL [Robaxin-750] 1,500 mg PO TID PRN #30 tab 05/27/23 09/06/23 Rx Allgergy Eye Drops(Unk) 1 applic BOTH EYES DIRECTED PRN 08/30/23 09/06/23 History Celecoxib [CeleBREX] 200 mg PO DAILY 08/30/23 09/06/23 History Cetirizine HCl [Zyrtec] 10 mg PO DAILY 08/30/23 09/06/23 History Propranolol LA [Inderal LA] 80 mg PO DAILY 08/30/23 09/06/23 History Allergies Allergy/AdvReac Type Severity Reaction Status Date / Time Penicillins AdvReac Rash/Hives Verified 09/06/23 06:27 Sulfa (Sulfonamide AdvReac Rash/Hives Verified 09/06/23 06:27 Antibiotics) Physical Exam Vitals: Vital Signs Temp Pulse Pulse Resp BP BP Pulse Ox 09/06/23 12:41 63 16 126/60 97 09/06/23 12:26 67 16 127/61 98 09/06/23 12:11 53 L 16 132/62 97 09/06/23 11:56 46 L 16 135/62 96 09/06/23 11:41 58 L 16 129/60 96 09/06/23 11:26 97.3 F L 50 L 16 123/60 98 09/06/23 11:11 46 L 12 138/61 98 09/06/23 10:56 43 L 12 135/63 100 09/06/23 10:55 97.1 F L 09/06/23 10:41 48 L 12 145/65 100 09/06/23 10:26 47 L 12 150/67 100 09/06/23 10:11 97.0 F L 52 L 12 140/67 100 09/06/23 06:31 98.8 F 60 18 125/70 96 Intake and Output 09/05/23 09/06/23 09/06/23 22:59 06:59 14:59 Intake Total 100 1652 Output Total 475 Balance 100 1177 Intake: IV 100 1652 Output: Urine 325 Estimated Blood Loss 150 Other: Weight 75.3 kg Results Labs: Abnormal Lab Results - Last 24 Hours (Table) 09/06/23 Range/Units 12:07 POC Glucose (mg/dL) 139 H (70-110) mg/dL
[2023-09-06] MEDS: ACETAMINOPHEN TAB 325 MG TAB PO SCH (13:31)
[2023-09-06] MEDS: GABAPENTIN 300 MG CAP PO SCH (17:13)
[2023-09-06] MEDS: HYDROcodone/APAP 10-325MG 1 EACH TAB PO PRN (17:21)
[2023-09-06] MEDS: ATORVASTATIN 10 MG TAB PO SCH (20:18)
[2023-09-07] MEDS: LEVOTHYROXINE 75 MCG TAB PO SCH (05:42)
--- NOTE | 2023-09-07 07:14 | CT ---
EXAMINATION TYPE: CT lumbar spine wo con CT DLP: 989.8 mGycm, Automated exposure control for dose reduction was used. DATE OF EXAM: 09/07/2023 1:01 AM COMPARISON: 06/01/2023. CLINICAL INDICATION:Female, 78 years old with history of s/p L3-L4 decompr fusion; PHH, s/p L3-L4 dec ompr fusion TECHNIQUE: Multiple axial images were obtained from the midportion of T11 through the sacroiliac josué nts. Soft tissue and bone windows in coronal and sagittal planes were obtained and reviewed. Contrast used: mL of , (None, if empty). Oral contrast used: (None, if empty). FINDINGS: Postsurgical changes to the lumbar spine with fixation hardware at L3 and L4. Discectomy at L3-L4. Galindo rdware limits evaluation at these levels. Hardware appears intact. No evidence of fracture. Postsurgical changes in the soft tissues with foci of gas present. Drainage catheter with tubing in t he surgical bed. Posterior back skin jennifer are present. Scattered colonic diverticula present. IMPRESSION: Postsurgical changes without evidence of immediate post operative complication.
--- NOTE | 2023-09-07 07:54 | P.PN ---
Progress Note - Text Progress Note Date: 09/07/[address] reviewed of the lumbar spine demonstrates hardware 34 in good position and good decompression good latter day of height alignment and lordosis. No pelvic process seen at this time.
[2023-09-07 08:51] LABS: BUN/Creat Ratio 23.82 Ratio (12.00-20.00); Blood Urea Nitrogen 26.2 mg/dL (9.0-27.0); Calcium 8.5 mg/dL (8.7-10.3); Carbon Dioxide 30.3 mmol/L (21.6-31.8); Chloride 101 mmol/L (96-109); Glucose 109 mg/dL (70-110); Potassium 3.6 mmol/L (3.5-5.5); Sodium 140 mmol/L (135-145)
[2023-09-07] MEDS: PROPRANOLOL LA 80 MG CAP.SA.24H PO SCH (09:00)
[2023-09-07] MEDS: LORATADINE 10 MG TAB PO SCH (09:00)
[2023-09-07] MEDS: hydroCHLOROthiazide 25 MG TAB PO SCH (09:00)
--- NOTE | 2023-09-07 09:23 | P.PN ---
Subjective Progress Note Date: 09/07/23 Principal diagnosis: Status post L3-L4 posterolateral decompression and fusion Patient was evaluated today at bedside, she is resting in her hospital bed. Urinary catheter was removed earlier this morning, she has not voided at this time. The Hemovac she states that the pain is much improved since yesterday after the surgery. Is in place with very minimal output at this time. She is eager to work with physical therapy. Patient does have a LSO brace that is at bedside, we discussed when to use this. She denies any headaches, lightheadedness, chest pain or shortness of breath. She does notice an improvement in the paresthesias and discomfort in the anterior and lateral thighs. Objective - Vital Signs Vital signs: Vital Signs Temp 99.4 F 09/07/23 07:44 Pulse 62 09/07/23 07:44 Resp 19 09/07/23 07:44 BP 98/49 09/07/23 07:44 Pulse Ox 94 L 09/07/23 07:44 FiO2 Intake & Output 09/06/23 09/07/23 09/07/23 18:59 06:59 18:59 Intake Total 1652 Output Total 475 500 Balance 1177 -500 Weight 75.3 kg Intake: IV 1652 Output: Urine 325 500 Estimated Blood Loss 150 Other: Voiding Method Indwelling Catheter # Voids 0 - Exam Gen: AOx3, NAD VSS stable at this time Integument: Postop bandage and drain site are in good position and condition, no active drainage is visualized Palpation: Mild tenderness with palpation noted to the paraspinal region of the lumbar spine ROM: Full range of motion in all major muscle groups of the bilateral upper and lower extremities, no focal deficits. Sensory Exam: Senory exam to light touch is intact C5-T1 Senosry exam to light touch is intact L2-S1 Motor: 4/5 strength appreciated the bilateral lower extremities with hip flexion 5/5 strength appreciated in the bilateral lower extremities with knee extension, knee flexion, plantarflexion, dorsiflexion, EHL, FHL Reflexes: 2/4 in all UE and LE Negative clonus bilaterally, negative Babinski bilaterally Special Test: Negative straight leg raise bilaterally - Labs CBC & Chem 7: 09/07/23 06:20 Labs: Abnormal Lab Results - Last 24 Hours (Table) 09/06/23 09/07/23 Range/Units 12:07 06:20 Est GFR (CKD-EPI) 51 L (>=60) BUN/Creatinine Ratio 23.82 H (12.00-20.00) Ratio POC Glucose (mg/dL) 139 H (70-110) mg/dL Calcium 8.5 L (8.7-10.3) mg/dL Assessment and Plan Assessment: Postoperative day #1 status post L3-L4 posterior lateral decompression and fusion Plan: Pain control, continue with current medications. Please utilize scheduled stool softeners DVT prophylaxis, will begin heparin later today, plan to utilize during hospital stay Wound care, continue to monitor both surgical dressing and drain from Hemovac. Depending on output after working with physical therapy, may discontinue Hemovac later today or first thing on 09/08/2023 Monitor for urinary retention PT/OT evaluation, recommend weight-bear as tolerated with walker. Patient will use LSO brace when ambulating Medical recommendations appreciated Encourage incentive spirometer Discharge planning: Patient will require 1 additional night stay for pain control and working with physical therapy. Plan for discharge to home with home health care on 09/08/2023 Time with Patient: Less than 30
[2023-09-07 09:27] LABS: Basophils # (A) 0.03 X 10*3/uL (0.00-0.10); Basophils % (A) 0.3 %; Eosinophils # (A) 0.02 X 10*3/uL (0.04-0.35); Eosinophils % (A) 0.2 %; HCT 34.3 % (37.2-46.3); HGB 10.8 g/dL (12.0-15.0); Lymphocytes # (A) 1.15 X 10*3/uL (0.90-5.00); MCHC 31.5 g/dL (32.0-37.0); MCV 95.3 FL (80.0-97.0); Mean Platelet Volume 11.8 FL (9.5-12.2); Monocytes # (A) 0.67 X 10*3/uL (0.20-1.00); Monocytes % (A) 6.4 %; NRBC Per 100 WBC 0 X 10*3/uL (0.00-0.01); Neutrophils # (A) 8.58 X 10*3/uL (1.80-7.70); Neutrophils % (A) 81.7 %; Platelet Count 168 X 10*3/uL (140-440); RDW 12.7 % (11.5-14.5); WBC 10.49 X 10*3/uL (4.50-10.00)
[2023-09-07] MEDS: SODIUM CHLORIDE 0.9% 1,000 ML IV SCH (12:36)
[2023-09-07] MEDS: HYDROcodone/APAP 5-325MG 1 EACH TAB PO PRN (12:39)
[2023-09-07] MEDS: BENZOCAINE/MENTHOL LOZENG 1 EACH LOZENGE MUCOUS MEM PRN (13:17)
[2023-09-07] MEDS: SENNOSIDES-DOCUSATE SODIUM 1 EACH TAB PO PRN (13:18)
--- NOTE | 2023-09-07 13:36 | P.PN ---
Subjective Progress Note Date: 09/07/23 (delayed charting seen at 1010) Patient is a 78-year-old female with hypertension, dyslipidemia, hypothyroidism, and chronic low back pain who elected for L3-4 laminectomy with fusion. She tolerated the procedure well with some significant postoperative pain. Patient seen and examined at bedside. She is crying and upset and feeling overwhelmed at her current situation. She reports some shortness of breath when the pain is severe. Back pain with coughing. Decreased appetite. She denies any lightheadedness, dizziness, or chest pain. Vital signs reviewed General: Nontoxic, no distress, appears at stated age Cardiovascular: S1S2 reg, no murmur Lungs: CTA bilateral, no rhonchi, no rales, no accessory muscle use Abdominal: Soft, nontender to palpation, no guarding Ext: No gross muscle atrophy, no edema b/l lower extremities, no contractures, back brace in place Neuro: CN II-XI grossly intact, no focal neuro deficits Psych: Alert, oriented, appears upset/anxious Assessment/Plan: 78-year-old female status post L3-4 decompression and fusion Acute blood loss anemia, anticipated outcome of surgery Leukocytosis, suspect reactive -Repeat CBC in a.m. -No indication for transfusion -Outpatient hemoglobin was 12.6. Monitor closely and if becomes less than 10 would consider oral iron replacement Hypertension Dyslipidemia -Patient with low blood pressures this morning. Will hold propranolol and hydrochlorothiazide -Follow blood pressures closely. Hypothyroidism -Continue with Synthroid 75 mcg daily Imaging: None new Data Review: Labs reviewed from today include CBC and basic metabolic profile which are re markable for white blood cell count 10.49 and hemoglobin 10.8 Thank you for allowing us to participate in the care of this pleasant patient. Do not hesitate to contact us with questions. Someone can be reached from the [facility] hospitalist group all hours of the day at [phone] or via [employer]. This dictation was prepared using [employer] voice recognition software. Though every attempt is made to correct errors during dictation some may still exist. Objective - Vital Signs Vital signs: Vital Signs Temp 99.4 F 09/07/23 07:44 Pulse 62 09/07/23 07:44 Resp 19 09/07/23 07:44 BP 98/49 09/07/23 07:44 Pulse Ox 94 L 09/07/23 09:36 FiO2 Intake & Output 09/06/23 09/07/23 09/07/23 18:59 06:59 18:59 Intake Total 1652 Output Total 475 500 200 Balance 1177 -500 -200 Weight 75.3 kg Intake: IV 1652 Output: Urine 325 500 200 Estimated Blood Loss 150 Other: Voiding Method Indwelling Catheter # Voids 0 - Labs CBC & Chem 7: 09/07/23 06:20 09/07/23 06:20 Labs: Abnormal Lab Results - Last 24 Hours (Table) 09/07/23 09/07/23 Range/Units 06:20 06:20 WBC 10.49 H (4.50-10.00) X 10*3/uL RBC 3.60 L (4.10-5.20) X 10*6/uL Hgb 10.8 L (12.0-15.0) g/dL Hct 34.3 L (37.2-46.3) % MCHC 31.5 L (32.0-37.0) g/dL Neutrophils # 8.58 H (1.80-7.70) X 10*3/uL Eosinophils # 0.02 L (0.04-0.35) X 10*3/uL Est GFR (CKD-EPI) 51 L (>=60) BUN/Creatinine Ratio 23.82 H (12.00-20.00) Ratio Calcium 8.5 L (8.7-10.3) mg/dL
[2023-09-07] MEDS: HEPARIN SODIUM,PORCINE 5,000 UNIT/ML 1 ML VIAL SQ SCH (20:24)
[2023-09-08 08:06] VITALS: RESP 18
--- NOTE | 2023-09-08 10:02 | P.PN ---
Subjective Progress Note Date: 09/08/23 Principal diagnosis: Status post L3-L4 posterolateral decompression and fusion Patient was evaluated today at bedside, she is resting in her hospital bed. Patient states she is feeling a lot better today compared to yesterday. She was able to ambulate with the use of the walker and LSO brace. She has been urinating with no difficulty. She is having very minimal output of any in the Hemovac drain. She denies any headaches, lightheadedness, chest pain or shortness of breath at this time. Objective - Vital Signs Vital signs: Vital Signs Temp 99.4 F 09/08/23 07:03 Pulse 63 09/08/23 07:03 Resp 18 09/08/23 07:03 BP 96/49 09/08/23 07:03 Pulse Ox 92 L 09/08/23 07:03 FiO2 Intake & Output 09/07/23 09/08/23 09/08/23 18:59 06:59 18:59 Output Total 600 500 Balance -600 -500 Output: Urine 600 500 Other: Voiding Method Toilet Toilet # Voids 2 5 - Exam Gen: AOx3, NAD VSS stable at this time Integument: Postop bandage and Hemovac removed today at bedside. Incision is well-healing with good stable position. A new dressing was applied. Palpation: Mild tenderness with palpation noted to the paraspinal region of the lumbar spine ROM: Full range of motion in all major muscle groups of the bilateral upper and lower extremities, no focal deficits. Sensory Exam: Senory exam to light touch is intact C5-T1 Senosry exam to light touch is intact L2-S1 Motor: 4/5 strength appreciated the bilateral lower extremities with hip flexion 5/5 strength appreciated in the bilateral lower extremities with knee extension, knee flexion, plantarflexion, dorsiflexion, EHL, FHL Reflexes: 2/4 in all UE and LE Negative clonus bilaterally, negative Babinski bilaterally Special Test: Negative straight leg raise bilaterally - Labs CBC & Chem 7: 09/07/23 06:20 09/07/23 06:20 Assessment and Plan Assessment: Postoperative day #2 status post L3-L4 posterior lateral decompression and fusion Plan: Pain control, plan for discharge home on [place] 10 mg / 325 mg. Will utilize stool softeners at home also DVT prophylaxis, continue heparin during hospital stay Wound care instructions were discussed, this to include when to discontinue use of the Optifoam dressing. We also discussed showering and basic bandaging techniques Home health care/PT after discharge, weight-bear as tolerated with walker Medical recommendations appreciated Encourage incentive spirometer Discharge planning: Plan for discharge home today Time with Patient: Less than 30
--- NOTE | 2023-09-08 10:10 | P.DS ---
Providers Date of admission: 09/07/23 09:23 Expected date of discharge: 09/08/23 Attending physician: Agus Triplett DO Consults: 09/06/23 10:11 Consult Physician Routine Consulting Provider: Stella Lock Consult Reason/Comments: Medical Management s/p L3-L4 decompr fusion Do you want consulting provider notified?: Yes Primary care physician: Dotty Schuler Hospital Course: Date of admission: 09/06/2023 Date of discharge: 09/08/2023 Admission diagnosis: Status post L3-L4 posterior lateral decompression and fusion Discharge diagnosis: Same Attending physician: Dr. Triplett Surgical procedures: Posterior lateral decompression fusion L3-L4 Brief history: Patient is a 78-year-old female with a history of HNP L3-L4 with severe stenosis and radiculopathy, low back pain, lower extremity paresthesias. At this point patient has failed conservative treatment measures and has opted to proceed with a elective posterior lateral decompression and fusion L3-L4. Hospital course: Details of patient's surgery can be found in operative report. Patient tolerated the procedure well and was subsequently transported to orthopedic floor. Patient's orthopeidc and medical care was provided daily. Patient had daily laboratory tests performed for evaluation of overall blood counts. Patient had daily physical therapy to include strengthening range of motion as well as education with walker ambulation. Patient was treated with heparin for their postoperative DVT prophylaxis during their inpatient stay. Patient was noted to have a relatively uneventful postoperative course. Patient reported satisfactory pain control with oral pain medications by postoperative day 1. Patient showed satisfactory progress with physical therapy. Patient moved steadily through the program and had no difficulty meeting the goals by postoperative day 2. Given patient's otherwise satisfactory course and having met physical therapy goals, plan is to discharge patient home on postoperative day 2. Discharge condition/disposition: Patient will be discharged home in stable condition. Discharge medications: Instructions are given on resumption of patient's normal daily medications per primary care recommendation, in addition patient will be prescribed Pratt 10 mg / 325 mg, senna S, Mirlax 17g, Duricef 500 mg. Spine Discharge and Recovery Instructions Dressing: Leave your dressing in place for a total of 5 days post operatively. Then you may remove your dressing and leave open to air. Keep the area clean and if not able to keep area clean, then cover with sterile gauze and tape. Showering: You may shower 3 days after your procedure allowing soap and water to run over incision. Do not scrub. Do not soak. Blot dry. Follow up: Please confirm a follow up appointment with your surgeon 3 weeks post operatively. Please make an appointment to follow up with your PCP in 1-2 weeks after surgery for evaluation `3 phase, 3-week plan POST OP WEEKS 1-3 1. Lifting/carrying/pushing/pulling limited to less than 5 pounds. 2. Do not sit for longer than 15 minutes at one time. Get up and walk around. Prolonged sitting is NOT advised. If you lay down, see if you can tolerate laying down on you front (belly side) 3. Walk for periods of 15 minutes = 1 mile but no longer; do it multiple times times each day. 4. Ice your low back after activity. POST OP WEEKS 3-6 1. Lifting limited to less than 20 pounds. 2. Do not sit for longer than 30 minutes at a time. Frequently change positions. Use a sit-to stand workstation or take frequent breaks from sitting if you have returned to work. 3. Walk for 30 minutes each day. If possible, do these three or more times a day POST OP WEEKS 6+ At your 6-week appointment we will give you a physical therapy referral to focus on a core stabilization and strengthening program. You should also work on leg & buttock strengthening, hamstring & quadriceps stretching, and continue a low impact aerobic activity program such as swimming, walking, or riding a stationary bicycle. During the initial 6 weeks after your surgery, you are at the highest risk of re-injuring your spine. You should generally avoid BLTs (bending, lifting and twisting combination motions) and follow the above guidelines to reduce the chance of reinjury. You can anticipate post op appointments in our office at approximately 3 weeks and 6 weeks after your surgery. INCISION CARE: If your incision is not draining you do NOT need to cover it with a dressing. Keep your incision clean, dry and intact. In most cases, we apply skin glue, jennifer or sutures to the incision at the time of surgery. This will be like a crust or have the appearance of a scab and will fall off in time on its own. The stitches or jennifer need to be removed at 3 weeks post op appointment. You may begin to shower 3 days after surgery (this allows the glue to harvey well). However, please avoid scrubbing the incision site or peeling off any of the skin glue. This will ensure optimal healing of your incision. Also, during this time avoid soaking the incision area in water - this includes swimming pools, hot tubs or baths. No ointments, lotions or oils on the incision until your surgeon allows. Leave jennifer, sutures or glue in place. Neurological dysfunction that comes on suddenly can also be a sign of a stroke. Below some common symptoms of a stroke are listed: B - balance difficulty such as sudden onset walking or leaning to one side - NEW E - eye problem such as sudden double vision or trouble seeing on one side - NEW F - Facial weakness or numbness on one side - NEW A - Arm or leg weakness or numbness on one side - NEW S - Slurred speech or difficulty with word finding - NEW T - Time is BRAIN! Call 911 as soon as you recognize these symptoms Diet: Consume a regular diet rich in vegetables and lean protein such as chicken or fish. You should consume in a ratio of approximately 20% fats|40% carbohydrates|40%protein. Vegetables, sweet potatoes, brown rice or quinoa are examples of good carbohydrates. Chips, white bread, cookies and sweets/sugar are examples of bad carbohydrates. Limit your bad carbs, go wild with good carbs. "Life's Simple 7" Guidelines as per [place] [employer] These will help you reclaim your life after surgery and spring fitter helper in your recovery, keeping in mind your restrictions. (1) Get Active. Physical activity can help people lose weight, control high blood pressure and cholesterol, feel emotionally better, and sleep better. (2) Control Cholesterol. Avoid a diet high in saturated fat, trans fat, & cholesterol. Limit whole milk & cream, ice cream, butter, egg yolks, processed meats (like sausage and hot dogs), and fatty meats. Choose healthy foods that are low in saturated fat, trans fat and cholesterol which include: Fruits and vegetables, fiber rich grain products (like whole grain pasta and brown rice), lean meat such as chicken, fish, nuts, seeds, and legumes. (3) Eat Better. Eat small portions. Shop at the grocery with a list and do not stray from it. Tips for a healthy diet include: Limit sodium intake to less than 1500mg daily, avoid prepackaged, processed, and fast foods, choose a diet rich in fruits, vegetables, and whole grain, high fiber foods, and limit saturated & cholesterol in your diet. (4) Manage Blood Pressure. If you have high blood pressure, you should have a cuff at home so that you can check your blood pressure regularly. Be sure you have a good cuff. An arm one is generally better than a wrist one. Bring the cuff to a doctor's appointment to validate that the measurements that your cuff are taking are accurate. Take your blood pressure twice daily when you are sitting down and relaxing. Record the numbers in a log and bring this log with you to your doctors' appointments. (5) Lose Weight if your BMI is above 25. A healthy BMI is between 19-25. To calculate Your BMI, you may use a Standard BMI Calculator on the NIH BMI website: <www.nhlbi.nih.gov/guidelines/obesity/BMI/bmicalc.htm>. Weigh oneself daily. If you are overweight, set a goal to lose weight. A pound a week loss if needed is a good target. (6) Reduce Blood Sugar. Limit foods and liquids with "added sugars." (Added sugars include sucrose, fructose, glucose, maltose, dextrose, high fructose corn syrup, corn syrup, concentrated fruit juice and honey). (7) Stop Smoking. If you smoke, quitting smoking is one of the best things that you can do for your health. Smoking increases your risk of heart attack, stroke, and peripheral vascular disease, which is a build-up of plaque in your arteries. Please discard all the cigarettes and lighters in your house. Have a plan for what you will do when you have the urge to smoke. Direct and second- hand smoke shortens your life as well as the lives of your family, friends and others around you. For your health and the health of those around you, please consider quitting! Proper Bending Body Mechanics: Maintain a wide stance with one foot slightly in front of the other. Keep your back straight. Bend utilizing the strength in your hips and knees. Do not bend at the waist. Maintain the lifted object at your waist-level close to your body. Avoid lifting weight that causes immediately pain or pain anywhere in the body afterwards. Smoking/Nicotine If there was ever one thing that you could do to increase your overall health, decrease your risk of cardiovascular problems by about 39% the second you make the choice, it is to STOP SMOKING. Your body's most instant gratification is the second you stop smoking. We have all heard the studies, read the articles but it is true, smoking is extremely bad for your overall health, and moreover it is detrimental to your bone health. Nicotine, IN ANY FORM, kills bone cells, prevents your body from healing fractures, and significantly prolongs healing after surgery. In spine surgery specifically, it increases your risk of not healing your bones to create a fusion and increases your risk of having a revision surgery due to this up to 60%. I know it is hard. I know it feels impossible. But there are ways. Take control of your life. We are here to help you through it. And when you are ready, ask us and we can direct you to help if you desire. Use the START Plan to Quit Smoking (please visit the [employer] website listed below for more information): S = Set a quit date. Choose a date within the next 2 weeks, so you have enough time to prepare without losing your motivation to quit. If you mainly smoke at work, quit on the weekend, so you have a few days to adjust to the change. T = Tell family, friends, and co-workers that you plan to quit. Let your friends and family in on your plan to quit smoking and tell them you need their support and encouragement to stop. Look for a quit lisbeth who wants to stop smoking as well. You can help each other get through the rough times. A = Anticipate and plan for the challenges you'll face while quitting. Most people who begin smoking again do so within the first 3 months. You can help yourself make it through by preparing ahead for common challenges, such as nicotine withdrawal and cigarette cravings. R = Remove cigarettes and other tobacco products from your home, car, and work. Throw away all your cigarettes (no emergency pack!), lighters, ashtrays, and matches. Wash your clothes and freshen up anything that smells like smoke. Shampoo your car, clean your drapes and carpet, and steam your furniture. T = Talk to your doctor about getting help to quit. Your doctor can prescribe medication to help with withdrawal and suggest other alternatives. If you can't see a doctor, you can get many products over the counter at your local pharmacy or grocery store, including the nicotine patch, nicotine lozenges, and nicotine gum. Resources for Quitting Smoking: <https://www.[place].gov/documents/[facility]/Quit_Tobacco_Resources_for_patients_313 480_7.pdf> Supplementation: Take recommended dosages of Vitamin D and Calcium to help fortify your bones and help them to heal. See your health maintenance packet for dosages and recommended levels. DVT/VTE prophylaxis: You will be given compression stockings from the hospital. Wear these daily for the first two weeks after surgery. You may take them off at night. You may be prescribed a medication to help thin your blood. Take this as directed. If you are not prescribed this medication, early and frequent ambulation has been shown to be the best prophylaxis to deep vein thrombosis and sequelae related to this event. Procedures: L3-L4 posterior lateral decompression and fusion Plan - Discharge Summary Discharge Rx Participant: No New Discharge Prescriptions: New HYDROcodone/APAP 10-325MG [Pratt 10-325] 1 tab PO Q4HR PRN 7 Days #42 tab PRN Reason: Pain Sennosides/Docusate Sodium [Senna-S 8.6-50 mg Tablet] 2 each PO DAILY PRN #30 tablet PRN Reason: Constipation cefaDROXiL [Duricef] 500 mg PO Q12HR 5 Days #10 cap polyethylene glycoL 3350 [Miralax] 17 gm PO DAILY PRN #21 packet PRN Reason: Constipation No Action Levothyroxine Sodium [Synthroid] 75 mcg PO DAILY methocarbamoL [Robaxin-750] 1,500 mg PO TID PRN #30 tab PRN Reason: Pain Propranolol LA [Inderal LA] 80 mg PO DAILY Allgergy Eye Drops(Unk) 1 applic BOTH EYES DIRECTED PRN PRN Reason: dry itchy eyes Simvastatin [Zocor] 20 mg PO HS hydroCHLOROthiazide [Hydrodiuril] 25 mg PO DAILY Cetirizine HCl [Zyrtec] 10 mg PO DAILY Celecoxib [CeleBREX] 200 mg PO DAILY Discharge Medication List Levothyroxine Sodium [Synthroid] 75 mcg PO DAILY 08/27/21 [History] Simvastatin [Zocor] 20 mg PO HS 08/27/21 [History] hydroCHLOROthiazide [Hydrodiuril] 25 mg PO DAILY 08/27/21 [History] methocarbamoL [Robaxin-750] 1,500 mg PO TID PRN #30 tab 05/27/23 [Rx] Allgergy Eye Drops(Unk) 1 applic BOTH EYES DIRECTED PRN 08/30/23 [History] Celecoxib [CeleBREX] 200 mg PO DAILY 08/30/23 [History] Cetirizine HCl [Zyrtec] 10 mg PO DAILY 08/30/23 [History] Propranolol LA [Inderal LA] 80 mg PO DAILY 08/30/23 [History] HYDROcodone/APAP 10-325MG [Pratt 10-325] 1 tab PO Q4HR PRN 7 Days #42 tab 09/08/23 [Rx] Sennosides/Docusate Sodium [Senna-S 8.6-50 mg Tablet] 2 each PO DAILY PRN #30 tablet 09/08/23 [Rx] cefaDROXiL [Duricef] 500 mg PO Q12HR 5 Days #10 cap 09/08/23 [Rx] polyethylene glycoL 3350 [Miralax] 17 gm PO DAILY PRN #21 packet 09/08/23 [Rx] Follow up Appointment(s)/Referral(s): [facility], [NON-STAFF] - 1-2 Days ([facility] will call you to schedule your in home nursing, physical therapy, and occupational therapy visits. ) Agus Triplett DO [Doctor of Osteopathic Medicine] - 09/20/23 9:45 am Activity/Diet/Wound Care/Special Instructions: Spine Discharge and Recovery Instructions Dressing: Leave your dressing in place for a total of 5 days post operatively. Then you may remove your dressing and leave open to air. Keep the area clean and if not able to keep area clean, then cover with sterile gauze and tape. Showering: You may shower 3 days after your procedure allowing soap and water to run over incision. Do not scrub. Do not soak. Blot dry. Follow up: Please confirm a follow up appointment with your surgeon 3 weeks post operatively. Please make an appointment to follow up with your PCP in 1-2 weeks after surgery for evaluation `3 phase, 3-week plan POST OP WEEKS 1-3 1. Lifting/carrying/pushing/pulling limited to less than 5 pounds. 2. Do not sit for longer than 15 minutes at one time. Get up and walk around. Prolonged sitting is NOT advised. If you lay down, see if you can tolerate laying down on you front (belly side) 3. Walk for periods of 15 minutes = 1 mile but no longer; do it multiple times times each day. 4. Ice your low back after activity. POST OP WEEKS 3-6 1. Lifting limited to less than 20 pounds. 2. Do not sit for longer than 30 minutes at a time. Frequently change positions. Use a sit-to stand workstation or take frequent breaks from sitting if you have returned to work. 3. Walk for 30 minutes each day. If possible, do these three or more times a day POST OP WEEKS 6+ At your 6-week appointment we will give you a physical therapy referral to focus on a core stabilization and strengthening program. You should also work on leg & buttock strengthening, hamstring & quadriceps stretching, and continue a low impact aerobic activity program such as swimming, walking, or riding a stationary bicycle. During the initial 6 weeks after your surgery, you are at the highest risk of re-injuring your spine. You should generally avoid BLTs (bending, lifting and twisting combination motions) and follow the above guidelines to reduce the c wilber of reinjury. You can anticipate post op appointments in our office at approximately 3 weeks and 6 weeks after your surgery. INCISION CARE: If your incision is not draining you do NOT need to cover it with a dressing. Keep your incision clean, dry and intact. In most cases, we apply skin glue, jennifer or sutures to the incision at the time of surgery. This will be like a crust or have the appearance of a scab and will fall off in time on its own. The stitches or jennifer need to be removed at 3 weeks post op appointment. You may begin to shower 3 days after surgery (this allows the glue to harvey well). However, please avoid scrubbing the incision site or peeling off any of the skin glue. This will ensure optimal healing of your incision. Also, during this time avoid soaking the incision area in water - this includes swimming pools, hot tubs or baths. No ointments, lotions or oils on the incision until your surgeon allows. Leave jennifer, sutures or glue in place. Neurological dysfunction that comes on suddenly can also be a sign of a stroke. Below some common symptoms of a stroke are listed: B - balance difficulty such as sudden onset walking or leaning to one side - NEW E - eye problem such as sudden double vision or trouble seeing on one side - NEW F - Facial weakness or numbness on one side - NEW A - Arm or leg weakness or numbness on one side - NEW S - Slurred speech or difficulty with word finding - NEW T - Time is BRAIN! Call 911 as soon as you recognize these symptoms Diet: Consume a regular diet rich in vegetables and lean protein such as chicken or fish. You should consume in a ratio of approximately 20% fats|40% carbohydrates|40%protein. Vegetables, sweet potatoes, brown rice or quinoa are examples of good carbohydrates. Chips, white bread, cookies and sweets/sugar are examples of bad carbohydrates. Limit your bad carbs, go wild with good carbs. "Life's Simple 7" Guidelines as per [place] [employer] These will help you reclaim your life after surgery and spring fitter helper in your recovery, keeping in mind your restrictions. (1) Get Active. Physical activity can help people lose weight, control high blood pressure and cholesterol, feel emotionally better, and sleep better. (2) Control Cholesterol. Avoid a diet high in saturated fat, trans fat, & cholesterol. Limit whole milk & cream, ice cream, butter, egg yolks, processed meats (like sausage and hot dogs), and fatty meats. Choose healthy foods that are low in saturated fat, trans fat and cholesterol which include: Fruits and vegetables, fiber rich grain products (like whole grain pasta and brown rice), lean meat such as chicken, fish, nuts, seeds, and legumes. (3) Eat Better. Eat small portions. Shop at the grocery with a list and do not stray from it. Tips for a healthy diet include: Limit sodium intake to less than 1500mg daily, avoid prepackaged, processed, and fast foods, choose a diet rich in fruits, vegetables, and whole grain, high fiber foods, and limit saturated & cholesterol in your diet. (4) Manage Blood Pressure. If you have high blood pressure, you should have a cuff at home so that you can check your blood pressure regularly. Be sure you have a good cuff. An arm one is generally better than a wrist one. Bring the cuff to a doctor's appointment to validate that the measurements that your cuff are taking are accurate. Take your blood pressure twice daily when you are sitting down and relaxing. Record the numbers in a log and bring this log with you to your doctors' appointments. (5) Lose Weight if your BMI is above 25. A healthy BMI is between 19-25. To calculate Your BMI, you may use a Standard BMI Calculator on the NIH BMI website: <www.nhlbi.nih.gov/guidelines/obesity/BMI/bmicalc.htm>. Weigh oneself daily. If you are overweight, set a goal to lose weight. A pound a week loss if needed is a good target. (6) Reduce Blood Sugar. Limit foods and liquids with "added sugars." (Added sugars include sucrose, fructose, glucose, maltose, dextrose, high fructose corn syrup, corn syrup, concentrated fruit juice and honey). (7) Stop Smoking. If you smoke, quitting smoking is one of the best things that you can do for your health. Smoking increases your risk of heart attack, stroke, and peripheral vascular disease, which is a build-up of plaque in your arteries. Please discard all the cigarettes and lighters in your house. Have a plan for what you will do when you have the urge to smoke. Direct and second- hand smoke shortens your life as well as the lives of your family, friends and others around you. For your health and the health of those around you, please consider quitting! Proper Bending Body Mechanics: Maintain a wide stance with one foot slightly in front of the other. Keep your back straight. Bend utilizing the strength in your hips and knees. Do not bend at the waist. Maintain the lifted object at your waist-level close to your body. Avoid lifting weight that causes immediately pain or pain anywhere in the body afterwards. Smoking/Nicotine If there was ever one thing that you could do to increase your overall health, decrease your risk of cardiovascular problems by about 39% the second you make the choice, it is to STOP SMOKING. Your body's most instant gratification is the second you stop smoking. We have all heard the studies, read the articles but it is true, smoking is extremely bad for your overall health, and moreover it is detrimental to your bone health. Nicotine, IN ANY FORM, kills bone cells, prevents your body from healing fractures, and significantly prolongs healing after surgery. In spine surgery specifically, it increases your risk of not healing your bones to create a fusion and increases your risk of having a revision surgery due to this up to 60%. I know it is hard. I know it feels impossible. But there are ways. Take control of your life. We are here to help you through it. And when you are ready, ask us and we can direct you to help if you desire. Use the START Plan to Quit Smoking (please visit the Helpguide.org website listed below for more information): S = Set a quit date. Choose a date within the next 2 weeks, so you have enough time to prepare without losing your motivation to quit. If you mainly smoke at work, quit on the weekend, so you have a few days to adjust to the change. T = Tell family, friends, and co-workers that you plan to quit. Let your friends and family in on your plan to quit smoking and tell them you need their support and encouragement to stop. Look for a quit lisbeth who wants to stop smoking as well. You can help each other get through the rough times. A = Anticipate and plan for the challenges you'll face while quitting. Most people who begin smoking again do so within the first 3 months. You can help yourself make it through by preparing ahead for common challenges, such as nicotine withdrawal and cigarette cravings. R = Remove cigarettes and other tobacco products from your home, car, and work. Throw away all your cigarettes (no emergency pack!), lighters, ashtrays, and matches. Wash your clothes and freshen up anything that smells like smoke. Shampoo your car, clean your drapes and carpet, and steam your furniture. T = Talk to your doctor about getting help to quit. Your doctor can prescribe medication to help with withdrawal and suggest other alternatives. If you can't see a doctor, you can get many products over the counter at your local pharmacy or grocery store, including the nicotine patch, nicotine lozenges, and nicotine gum. Resources for Quitting Smoking: <https://www.[place].gov/documents/[facility]/Quit_Tobacco_Resources_for_patients_313 480_7.pdf> Supplementation: Take recommended dosages of Vitamin D and Calcium to help fortify your bones and help them to heal. See your health maintenance packet for dosages and recommended levels. DVT/VTE prophylaxis: You will be given compression stockings from the hospital. Wear these daily for the first two weeks after surgery. You may take them off at night. You may be prescribed a medication to help thin your blood. Take this as directed. If you are not prescribed this medication, early and frequent ambulation has been shown to be the best prophylaxis to deep vein thrombosis and sequelae related to this event. Discharge Disposition: HOME WITH HOME HEALTH SERVICES
[2023-09-08] MEDS: SENNOSIDES-DOCUSATE SODIUM 1 EACH TAB PO SCH (10:14)
[2023-09-08 10:28] LABS: African American GFR (CKD) 69 (>60 ml/min/1.73 sqM); Anion Gap 1 mmol/L; Blood Urea Nitrogen 22 mg/dL (7-17); Calcium 8.3 mg/dL (8.4-10.2); Carbon Dioxide 32 mmol/L (22-30); Chloride 102 mmol/L (98-107); Glucose 106 mg/dL (74-99); Non-African American GFR(CKD) 60 (>60 ml/min/1.73 sqM); Potassium 3.1 mmol/L (3.5-5.1); Sodium 135 mmol/L (137-145)
[2023-09-08] MEDS: methocarbamoL 750 MG TAB PO PRN (10:37)
[2023-09-08] MEDS: POTASSIUM CHLORIDE ER 20 MEQ TAB.ER PO STA (11:03)
[2023-09-08 11:47] LABS: Basophils % (A) 0 %; Eosinophils # (A) 0.1 k/uL (0-0.7); Eosinophils % (A) 0 %; HCT 34.6 % (34.0-46.0); HGB 11.3 gm/dL (11.4-16.0); Lymphocytes # (A) 1.2 k/uL (1.0-4.8); Lymphocytes % (A) 11 %; MCH 30.9 pg (25.0-35.0); MCHC 32.6 g/dL (31.0-37.0); MCV 94.8 fL (80.0-100.0); Mean Platelet Volume 8.8; Monocytes # (A) 0.7 k/uL (0-1.0); Monocytes % (A) 6 %; Neutrophils # (A) 8.8 k/uL (1.3-7.7); Neutrophils % (A) 80 %; Platelet Count 205 k/uL (150-450); RBC 3.65 m/uL (3.80-5.40); RDW 12.9 % (11.5-15.5); WBC 11.1 k/uL (3.8-10.6)
--- NOTE | 2023-09-08 13:13 | P.PN ---
Subjective Progress Note Date: 09/08/23 (delayed charting seen at 1106) Patient is a 78-year-old female with hypertension, dyslipidemia, hypothyroidism, and chronic low back pain who elected for L3-4 laminectomy with fusion. She tolerated the procedure well with some significant postoperative pain. Patient seen and examined at bedside. She is crying and upset and feeling overwhelmed at her current situation. She reports some shortness of breath when the pain is severe. Back pain with coughing. Decreased appetite. She denies any lightheadedness, dizziness, or chest pain. Vital signs reviewed General: Nontoxic, no distress, appears at stated age Cardiovascular: S1S2 reg, no murmur Lungs: CTA bilateral, no rhonchi, no rales, no accessory muscle use Abdominal: Soft, nontender to palpation, no guarding Ext: No gross muscle atrophy, no edema b/l lower extremities, no contractures, back brace in place Neuro: CN II-XI grossly intact, no focal neuro deficits Psych: Alert, oriented, appears upset/anxious Assessment/Plan: 78-year-old female status post L3-4 decompression and fusion Acute blood loss anemia, anticipated outcome of surgery Leukocytosis, suspect reactive -No indication for transfusion Constipation -Discussed with patient that any days she requires a pain medication she should take his senna at home and if she does not have a bowel movement in 48 hours she should take MiraLAX every other day and avoid straining. -This was also discussed with her [id number] at bedside who is an RN. Hypertension Dyslipidemia -Patient with low blood pressures this morning. Will hold propranolol and hydrochlorothiazide -Follow blood pressures closely. Hypothyroidism -Continue with Synthroid 75 mcg daily Medically optimized for discharge. Instructions given on when to resume blood pressure medications and how to take laxatives, these were added to the discharge tab as well. Imaging: None new Data Review: Labs reviewed from today include CBC and basic metabolic profile which are markable for white blood cell count 11.1, hemoglobin 11.3, sodium 135, potassium 3.1, carbon dioxide of 32 Thank you for allowing us to participate in the care of this pleasant patient. Do not hesitate to contact us with questions. Someone can be reached from the [facility] hospitalist group all hours of the day at [phone] or via [employer]. This dictation was prepared using dragon medical voice recognition software. Though every attempt is made to correct errors during dictation some may still exist. Objective - Vital Signs Vital signs: Vital Signs Temp 99.4 F 09/08/23 07:03 Pulse 63 09/08/23 07:03 Resp 18 09/08/23 07:03 BP 96/49 09/08/23 07:03 Pulse Ox 92 L 09/08/23 07:03 FiO2 Intake & Output 09/07/23 09/08/23 09/08/23 18:59 06:59 18:59 Output Total 600 500 Balance -600 -500 Output: Urine 600 500 Other: Voiding Method Toilet Toilet # Voids 2 5 - Labs CBC & Chem 7: 09/08/23 11:03 09/08/23 09:54 Labs: Abnormal Lab Results - Last 24 Hours (Table) 09/08/23 09/08/23 Range/Units 09:54 11:03 WBC 11.1 H (3.8-10.6) k/uL RBC 3.65 L (3.80-5.40) m/uL Hgb 11.3 L (11.4-16.0) gm/dL Neutrophils # 8.8 H (1.3-7.7) k/uL Sodium 135 L (137-145) mmol/L Potassium 3.1 L (3.5-5.1) mmol/L Carbon Dioxide 32 H (22-30) mmol/L BUN 22 H (7-17) mg/dL Glucose 106 H (74-99) mg/dL Calcium 8.3 L (8.4-10.2) mg/dL
[2023-09-08] MEDS: KETOROLAC 15 MG/ML 1 ML VIAL IVP SCH (13:14)
[2023-09-08 14:15] VITALS: BP 117/72; PULSE 77; TEMP 98.9
== END 2023-09-08 14:52 | disposition home health service (06) ==
LOC: OR 05:38 → 4SSUR 10:02 → OR 09-07 09:23 → 4SSUR 09-07 09:23
PROVIDERS: ADMIT Orthopaedic Surgery; ATTEND Orthopaedic Surgery
DX: M51.16 Intervertebral disc disorders with radiculopathy, lumbar region (principal); M48.061 Spinal stenosis, lumbar region without neurogenic claudication; M43.16 Spondylolisthesis, lumbar region; M41.86 Other forms of scoliosis, lumbar region; D62 Acute posthemorrhagic anemia; D72.829 Elevated white blood cell count, unspecified; K59.00 Constipation, unspecified; I10 Essential (primary) hypertension; E78.5 Hyperlipidemia, unspecified; E03.9 Hypothyroidism, unspecified; Z79.1 Long term (current) use of non-steroidal anti-inflammatories (NSAID); Z79.890 Hormone replacement therapy; Z79.899 Other long term (current) drug therapy; Z88.0 Allergy status to penicillin; Z88.2 Allergy status to sulfonamides
CPT/HCPCS: 96365; 96366 ×2; 96372 ×2; 94760; 97116; 97162; 80048 ×2; 85025 ×2; 72100; 72131; 22633; 22853; 22840; 20931; G0378 ×2; C1713; C1734; J3370; J1580; J1644 ×2; J0690 ×2; J2405; J3010; J1170

== ENCOUNTER → 2024-08-31 | Outpatient (CLI) | payer MEDICARE ==
--- NOTE | 2024-09-01 08:08 | BD ---
EXAMINATION TYPE: Axial Bone Density DATE OF EXAM: 08/31/2024 CLINICAL HISTORY: 79 years old Female. ICD-10 CODE: M89.9 DISORDER OF BONE N95.1 MENOPAUSAL AND FEMA LE , Additional History: Height: 62 Weight: 157.8 FRAX RISK QUESTIONS: Alcohol (3 or more units per day): no Family History (Parent hip fracture): no Glucocorticoids (More than 3mos): no (Ex: prednisone, prednisolone, methylprednisolone, dexamethasone, and hydrocortisone). History of Fracture in Adulthood: no Secondary Osteoporosis: 1. Type 1 Diabetes: no 2. Hyperthyroidism: no 3. Menopause before 45: no 4. Malnutrition: no 5. Chronic liver disease: no Rheumatoid Arthritis: no Current Tobacco Use: no RISK FACTORS HISTORY OF: Surgery to Spine/Hip(right/left)/Wrist (right/left): Lumbar spine 2023 When: MEDICATIONS: Thyroid Medications: synthroid How Lon years EXAM MEASUREMENTS: Bone mineral densitometry was performed using the Beaming System. Bone mineral density about the R hip (g/cm2): 0.888 Bone mineral density about the L hip (g/cm2): 0.872 T Score values are as follows: -----R Neck: -1.8 -----L Neck: -1.9 -----R Total: -0.9 -----L Total: -1.1 Z Score values are as follows: -----R Neck: 0.2 -----L Neck: 0.1 -----R Total: 0.9 -----L Total: 0.7 Bone mineral density has: decreased -7.6 % since study of: 7. Bone mineral density about the L Wrist (g/cm2): 0.531 T Score values are as follows: -----Dist. R+U: -3.2 -----Prox. R+U: -1.4 -----Radius total: -2.4 Z Score values are as follows: -----Dist. R+U: -0.5 -----Prox. R+U: 1.2 -----Radius total: 0.3 Bone mineral density : baseline FRAX%s: The graph provided illustrates a 14.8% chance for a major osteoporotic fx and a 4.0% chance f or the hips probability for fx in 10 years time. IMPRESSION: Osteopenia (T Score between -2.5 and -1). There is slightly increased risk of fracture and the patient may be considered for treatment. Re-Screen 2-5 years. NOTE: T-SCORE=SD OF THE YOUNG ADULT MEAN. [facility], , 09/01/2024 8:05 AM
== END | disposition home or self-care (01) ==
LOC: RADBDWWP 12:35
PROVIDERS: ATTEND Family Medicine
DX: M81.0 Age-related osteoporosis without current pathological fracture (principal); M85.89 Other specified disorders of bone density and structure, multiple sites; N95.1 Menopausal and female climacteric states
CPT/HCPCS: 77080